=== PATIENT | female | born 1975 | race Caucasian/White ===

== ENCOUNTER 2023-08-31 20:17 | Emergency (ER) | payer MEDICAID, SELFPAY ==
[2023-08-31 20:27] VITALS: BP 94/60; PULSE 93; TEMP 36.6; O2SAT 96; BMI 25.7
[2023-08-31 20:35] VITALS: PULSE 90
--- NOTE | 2023-08-31 20:41 | XR_ITS ---
The [address] [address] Patient Name: ALMA WALTON MRN: [id number] date: 1975 Sex: F Assigned Patient Location: ED.MAIN Current Patient Location: ER Accession/Order Number: [id number] Exam Date: 08/31/2023 21:20 Report Date: 08/31/2023 22:22 At the request of: YURIDIA CHAN Procedure: XR hand RT min 3V EXAMINATION: XR hand RT min 3V, , 08/31/2023 9:20 PM EDT INDICATION: right hand pain HISTORY: Ordering Provider Reason for Exam: right hand pain Technologist Note: Additional: COMPARISON: None. TECHNIQUE: Right hip x-ray: 2 view(s). FINDINGS: Mild periarticular osteopenia is seen. No acute fracture. Joint alignment is anatomic. Joint spaces are preserved. Soft tissues are within normal limits. XR/XR hand RT min 3V IMPRESSION: No acute fracture or traumatic malalignment. Mild periarticular osteopenia is seen. Electronically authenticated by: MIGUEL ROBERTS Date: 08/31/2023 22:22
--- NOTE | 2023-08-31 20:41 | XR_ITS ---
The [address] [address] Patient Name: ALMA WALTON MRN: [id number] date: 1975 Sex: F Assigned Patient Location: ED.MAIN Current Patient Location: Accession/Order Number: [id number] Exam Date: 08/31/2023 21:20 Report Date: 08/31/2023 22:20 At the request of: YURIDIA CHAN Procedure: XR shoulder RT min 2V EXAMINATION: XR shoulder RT min 2V, , 08/31/2023 9:20 PM EDT INDICATION: right shoulder pain HISTORY: Ordering Provider Reason for Exam: right shoulder pain Technologist Note: Additional: COMPARISON: None. TECHNIQUE: Right shoulder x-ray: 3 view(s). FINDINGS: No acute fracture. Glenohumeral and acromioclavicular joints are anatomically aligned. Joint spaces are preserved. Soft tissues are unremarkable. XR/XR shoulder RT min 2V IMPRESSION: No acute fracture or traumatic malalignment. Electronically authenticated by: MIGUEL ROBERTS Date: 08/31/2023 22:20
--- NOTE | 2023-08-31 20:44 | ED_ITS ---
HPI HPI - Extremity Injury (Upper) General Chief Complaint: Extremity Injury, Upper Stated Complaint: Upper Extremity Pain Time Seen by Provider: 08/31/23 20:32 Source: patient Mode of arrival: walk-in Limitations: no limitations History of Present Illness HPI narrative: Patient is a 48-year-old female who presents to the emergency department for complaint of pain. She states for the last year she has had pain in her right hand and difficulty moving it. She states she has seen other emergency departments for this complaint and was referred to a specialist although she does not know if it was an orthopedist or security incident response engineer. She states she was told it was arthritis. She further complains of right shoulder pain for the last several months with difficulty turning her neck. She denies any falls, injuries to the extremity. She is right-hand dominant but states she is not able to use her right hand due to pain. She has not noted any swelling, redness or warmth of the joints. She took Tylenol this morning. Related Data Previous Rx's ?Medication ?Instructions ?Recorded ketorolac 10 mg tablet 10 mg PO TID PRN pain #10 tabs 08/31/23 methocarbamol 750 mg tablet 750 mg PO TID PRN pain #20 tabs 08/31/23 methylprednisolone 4 mg tablets in See Rx Instructions .Route 08/31/23 a dose pack (Medrol (Gerardo)) .COMPLEX #21 ea Allergies Allergy/AdvReac Type Severity Reaction Status Date / Time gabapentin AdvReac Intermediate altered Verified 08/31/23 20:32 mental status amoxicillin AdvReac Mild Vomiting Verified 08/31/23 20:32 codeine AdvReac Mild Vomiting Verified 08/31/23 20:32 Opioid HPI Opioid Management Most Recent Pain and Opioid Data: Last Pain Scale 8 08/31/23 21:02 Last ED Pain Assessment 08/31/23 21:02 Review of Systems ROS Constitutional Denies: fever or chills Ears, nose, mouth, and throat Denies: throat pain or nasal congestion Respiratory Denies: shortness of breath Gastrointestinal Denies: nausea or vomiting Musculoskeletal Reports: extremity pain, joint pain and limited range of motion; Denies: back pain, neck pain or joint swelling Integumentary/Breast Denies: rash Hematologic/Lymphatic Denies: easy bruising or easy bleeding Exam Narrative Exam Narrative: Gen.: Awake, alert, in no distress Head: Normocephalic, atraumatic ENT: Moist mucous membranes Respiratory: No respiratory distress Extremities:Limited abduction at the right shoulder with limited administrative coordinator strength in the right hand, no appreciable swelling, erythema or joint deformities of the right hand or right shoulder. No bony tenderness of the C-spine or T-spine. No scapula tenderness of the right shoulder. Psych: Normal mood and affect Neuro: No focal neuro deficit Skin: Warm, dry, intact Constitutional Vital Signs, click to edit/add: Last Vital Signs Temp 98 F 08/31/23 20:27 Pulse 87 08/31/23 22:00 Resp 18 08/31/23 22:00 BP 101/68 08/31/23 22:00 Pulse Ox 99 08/31/23 22:00 O2 Del Method Room Air 08/31/23 22:00 Course Vital Signs Vital signs: Vital Signs Temperature 98 F 08/31/23 20:27 Pulse Rate 93 H 08/31/23 20:27 Respiratory Rate 18 08/31/23 20:27 Blood Pressure 94/60 08/31/23 20:27 Pulse Oximetry 96 08/31/23 20:27 Oxygen Delivery Method Room Air 08/31/23 20:27 Temperature 98 F 08/31/23 20:27 Pulse Rate 87 08/31/23 22:00 Respiratory Rate 18 08/31/23 22:00 Blood Pressure 101/68 08/31/23 22:00 Pulse Oximetry 99 08/31/23 22:00 Oxygen Delivery Method Room Air 08/31/23 22:00 MDM - Extremity Injury (Upper) MDM Narrative Medical decision making narrative: X-rays of the right shoulder and hand do not show any evidence of fracture or dislocation. Patient is neurovascularly intact with stable vital signs. She is given medication for symptoms in the ER and discharged home with NSAID, Medrol Dosepak and muscle relaxant. She was given referrals for primary care, orthopedics and rheumatology. The limitations of emergency department evaluation were explained to the patient and her significant other at bedside. Return to the ER if symptoms change or worsen. Medical Records Attestation: I reviewed the patient's medical records. Imaging Data XR shoulder/hand: Attestation: I have reviewed the pertinent imaging results. Radiologist's impression: ITS Impressions Hand X-Ray 08/31/23 20:41 IMPRESSION: No acute fracture or traumatic malalignment. Mild periarticular osteopenia is seen. Electronically authenticated by: MIGUEL ROBERTS Date: 08/31/2023 22:22 Shoulder X-Ray 08/31/23 20:41 IMPRESSION: No acute fracture or traumatic malalignment. Electronically authenticated by: MIGUEL ROBERTS Date: 08/31/2023 22:20 Discharge Plan Discharge Stand Alone Forms: Portal Instructions Chief Complaint: Extremity Injury, Upper Clinical Impression: Hand pain, right, Acute pain of right shoulder Patient Disposition: Home, Self-Care Time of Disposition Decision: 21:31 Condition: Good Mode of Transportation: Private Vehicle Prescriptions / Home Meds: New ketorolac 10 mg tablet 10 mg PO TID PRN (Reason: pain) Qty: 10 0RF methocarbamol 750 mg tablet 750 mg PO TID PRN (Reason: pain) Qty: 20 0RF methylprednisolone [Medrol (Gerardo)] 4 mg tablets,dose pack See Rx Instructions .ROUTE .COMPLEX Qty: 21 0RF Rx Instructions: Taper as directed Print Language: Kenyan Instructions: Arthralgia (ED) Additional Instructions: Your xrays do not show any fractures or dislocation. Consider seeing a regular doctor as well as orthopedics and rheumatology for further testing and evaluation. Rest, ice and gently stretch the right shoulder and hand. Referrals: SOL YODER [Physician] - 1 week Physician,Non-Staff, MD [Primary Care Provider] - 1 week MELISSA ROGERS [Physician] - 1 week Discharge Date/Time: 08/31/23 22:00
[2023-08-31] MEDS: HYDROCODONE/ACET 5-325 MG TABLET 1 TAB PO (20:49)
[2023-08-31] MEDS: KETOROLAC TROMETHAMINE 60 MG/2 ML VIAL IM (20:53)
[2023-08-31] MEDS: ORPHENADRINE 60 MG/ 2 ML VIAL IM (20:53)
[2023-08-31 22:00] VITALS: BP 101/68; PULSE 87; O2SAT 99
== END 2023-08-31 22:00 | disposition home or self-care (01) ==
PROVIDERS: Emergency Provider Internal Medicine; Family Provider Internal Medicine
DX: M79.641 Pain in right hand (principal); M25.511 Pain in right shoulder
CPT/HCPCS: 73030; 73130; 96372; 99285

== ENCOUNTER 2024-01-17 17:22 | Emergency (ER) | payer OTHER, SELFPAY ==
[2024-01-17 17:25] VITALS: BP 115/84; PULSE 94; TEMP 36.6; O2SAT 96; BMI 27.5
--- OUTSIDE RECORDS SUMMARY | 2024-01-17 17:28 | XMS_ITS | CCD ---
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 Roxana: The Engine 2 Diet, cookbook Mrs. Schmidt (his ) has a cookbook with many recipes on whole plant based food: The Prevent and Reverse Heart Disease cookbook. Dr. Jose Licea, has a website and free mehdi to help get started on a whole plant based diet, at ContaAzul.eBoox and the free mehdi is 21-Day Vegan Kickstart with meals and recipes to follow. He has multiple free videos and YouTube, for example: https://youtu.be/sxtRi lvU5s0 , https://youtu.be/BnHYH jchn6w Dr. Roger Meyer has proven starch diet whole plant based and benefit to his Rheumatoid Arthritis patients, his website: norman.Uniteam Communication Dr. Kevin Black is a renowned materials scientist, who has studied and researched the benefits of the Whole plant based diet. He has also researched the adverse effects of animal proteins on health. He presents many of his research findings in his book The [place] study. Dr. Brock Zelaya has completed many research trials proving the reversal of diseases with healthy lifestyle and the Whole Plant based diet. Dr. Brock Zelaya website is: OneSpot UnDo It a new book by Dr. Brock Tavares has dedicated a website and additional time to reviewing all food related articles and research and presents them in his power point presentation and on his website at: nutritionfacts.org Dr. Tavares has multiple free videos and YouTube, for example https://youMelior Discovery.be/aSgNk hgVtks and https://youMelior Discovery.be/lXXXy gDRyBU. You could also find information about other health recommendations and Functional Medicine, such as Dr. Alexie Alberto, through the [facility] website. He is a functional medicine and internet ecommerce specialist. Also, you could find additional information by reading or watching online and YouTube such as: Seamless Tube Mill Operator AJ, Cooking With Plants, The Vegan Corner (recipes from an Sinhala Seamless Tube Mill Operator), and visiting the provided websites for additional information on the whole plant based benefit and cooking recipes. The Whole Foods Plant Based Cooking Show Athletes such as Brian Farr, Amadeo Mckeon YouTube Guilt Free Amadeo Mckeon YouTube Guilt Free TV and Kj with Unata. Goodbye Lupus by Esetlita Rogers M.D If you suspect you are gluten sensitive or intolerant, consider gluten free diet. Gluten could lead to increased inflammation in the bowels and body in certain patients. Consider organic and non-GMO products when shopping for your food. GMO are genetically modified food that may have adverse impact on our health. 2- Regular Exercise, i.e. beginner yoga Come As You Are: YOGA - Gentle Yoga Anyone Can Do Anywhere www.Kid$Shirt.[employer]/yoga [place] chi, stretching, cardio, gradual strengthening, pool therapy, physical therapy 3- Good Sleep (poor sleep impacts everything, recommended sleep is 7.5 to 8 hrs. a night). Meditation and relaxation techniques have shown to help with improving sleep. 4- Stress management, staying positive, be happy, laugh often (it is a great medicine) Find time to relax and meditate if possible. Following steps 1-3 will help with this as well. In psychiatric disorders, it is important to follow with a professional on the optimal management of depression, anxiety or psychiatric illness 5- Supplementing necessary vitamins and minerals, correcting any deficiencies, i.e. Vitamin D, B12, omega-3 fatty acids etc... Go natural when possible If you are following a Whole plant based diet, it is recommended to take Vitamin B12, sublingual, dissolve under the tongue, take once daily. Vitamin B12 is available over the counter, dose could be 2500 mcg, and can be taken once a week, and if your blood levels are low, you may need to take it once daily or a higher dose. Raw: Garlic, Cilantro, Ariton nuts, Pumpkin seeds, Etna seeds and Flax seed powder have been reported to help with certain metal detoxification such as mercury. [place]-3 plant based sources: don seeds, flax seed powder, flax milk, walnuts. Turmeric can be found natural, used as the spice powder or the root with your food. This is also available as a capsule. Sweet cherries (raw cleaned or frozen) and Turmeric have anti-inflammatory benefit Start reviewing the Whole Plant Based Diet, by watching [place] over RSP Tooling movie and then review website. There are many other resources and educational information on the Whole plant based diet on the Internet and documentaries. There are other resources for wellness that you can also benefit from, such as the [facility] website, [facility] and includes the Mediterranean heart healthy diet and yoga and meditation. Please avoid all dairy products. You could use non-dairy milk such as Flax milk, Cashew milk, [place] milk, Rice milk, Oat milk or Hemp milk, instead. It is very important to avoid all: refined sugars (including high fructose syrup), refined carbohydrates, any artificial sweeteners and artificial preservatives, and soda and processed food. Insure adequate hydration; drink at least 6 to 8 cups of water daily Examples of Smoothies: Every morning you can start your day with a healthy natural anti-inflammatory smoothie, for example, you can blend: fresh or frozen sweet cherries, half a root of turmeric (1 to 2 inches), banana, blue berries, walnuts, few leaves of kale, add flax milk (or almond milk), and enjoy. You could add half an avocado if you like it smoother. If you do not tolerate walnuts, you can use flax seeds, don seeds or hemp seeds instead. If you do not like plant based milk, you can use coconut water or plain water instead. Other smoothies, including green smoothies, are also very healthy and highly anti-inflammatory. For example fruits (such as banana or frozen frederic or pineapple) and add significant amount of leafy greens, then add water or coconut water and blend until smooth. You can also add turmeric in this recipe. GENERAL INFORMATION ON BONE HEALTH : -Bone Density testing (DXA scan) as recommended. -Vitamin D supplementation is recommended, unless blood levels are sufficient. Recommended daily dose of 1000 to 2000 IU total a day, or the dose necessary to achieve a Vitamin D 25-OH blood level of >31 and preferably closer to 40-60 ng/mL. Vitamin D pills are available over the counter. -Recommended daily dose of calcium: 1200mg total a day in divided doses. Calcium is usually sufficient in our regular diet, also available in multivitamins. Patients on certain dietary restrictions or those unable to meet their daily calcium by diety alone, may require calcium supplements. For patient with history of calcium kidney stones, Calcium Citrate would be the recommended supplement. It is recommended to avoid caclium carbonate supplement in this case, as these may increase risk of calcium kidney stones. The after visit summary has information on dietary calcium and instructions on reading calcium label and converting the %DV to mg. When you read a food label and you see calcium reported as DV %, add a zero and this will provide you with the approximate mg value of the calcium content in this food. For example, if a glass of almond milk is labeled as 40% calcium DV, then this contains 400 mg of calcium. For additional information, please see references provided. -Regular weight-bearing and muscle-strengthening exercise -Avoidance of tobacco smoking, excessive alcohol intake and excessive caffeine intake. -Fall and fracture precautions -It is recommend to continue regular follow up visits with your dentist every 6 months, and continue with good oral hygiene. Calcium: If your diet is sufficient in Calcium rich food, you will not need calcium supplement. Calcium Citrate is the preferred calcium if you have had kidney stones. Daily recommended calcium dose: 600mg twice a day with meals. Adequate calcium ingestion is essential for maintaining healthy bones. The recommended dose daily intake of calcium varies depending on individual needs but is usually between 1200 and 1500mg daily, preferably around 1200mg a day in divided dose (not all taken at once). This is equivalent to about five 8oz glasses of milk per day. Many foods are rich in calcium and they include: - Plant based, non-dairy, calcium rich products, include nuts, almond milk, beans, lentils - Vegetables and Fruit: bok-sahni, turnips, broccoli, kale, collards, - Dairy products: milk, cheese, yogurt, ice-cream - Fish products: canned salmon, sardines and shrimp - Cereals and nuts: almonds, sesame seeds, fortified cereals and oatmeal - Other foods: fortified orange-juice, figs, soybeans, other beans and eggs. If you have a low calcium diet and cannot tolerate calcium-rich foods, many supplements are available today. Your pharmacist can help you choose the one which best suits your needs. A few tips on supplements: - They should be easy to swallow - They should dissolve easily in ? cup of vinegar in < 15 minutes. - Count the ELEMENTAL calcium mgs. E.g. Calcium 499mg may have only 221mg of elemental Calcium. - Calcium citrate is the calcium supplement to take if you have had kidney stones and unable to meet your calcium requirements from food/diet alone. - There is such a variety today that it is best to bring in the bottle to your doctor to show them exactly what you are taking. Lastly too much calcium can be bad for you. Recent studies show extra supplements may increase your risk of kidney stones or cause high calcium levels in some people. You should discuss how much you should be taking with your doctor before starting them. Further Information is available from the following resources: www.nof.org (National Osteoporosis Foundation) http://www.osteo.org/o steolinks.asp National Institutes of Health: 5-218-581-BONE The Calcium Information [place]: Non-Dairy, Plant based Milk, contain 1 glass = 450 mg of calcium Exampled include Flax Milk, [place] Milk, Cashew Milk Examples of Food Sources of Calcium from NIH Food Milligrams (mg) per serving Percent DV* Soymilk, calcium-fortified, 8 ounces 299 30 Kemper juice, calcium-fortified, 6 ounces 261 26 Tofu, firm, made with calcium sulfate, ? cup* 253 25 Tofu, soft, made with calcium sulfate, ? cup* 138 14 Qijup-ae-hbj cereal, calcium-fortified, 1 cup 100?1,000 10?100 Turnip greens, fresh, boiled, ? cup 99 10 Kale, raw, chopped, 1 cup 100 10 Kale, fresh, cooked, 1 cup 94 9 Slovenian cabbage, bok sahni, raw, shredded, 1 cup 74 7 Bread, white, 1 slice 73 7 Tortilla, corn, xyupj-xi-ybqm/willingham, one 6? diameter 46 5 Tortilla, flour, gkyfb-eo-oczi/willingham, one 6? diameter 32 3 Bread, whole-wheat, 1 slice 30 3 Broccoli, raw, ? cup 21 2 * DV = Daily Value. DVs were developed by the U.S. Food and Drug Administration to help consumers compare the nutrient contents among products within the context of a total daily diet. The U.S. Department of Agriculture?s (USDA?s) Nutrient Database Web site lists the nutrient content of many foods and provides comprehensive list of foods containing calcium arranged by nutrient content and by food name. *Calcium content varies slightly by fat content; the more fat, the less calcium the food contains. * Calcium content is for tofu processed with a calcium salt. Tofu processed with other salts does not provide significant amounts of calcium. You could acces this information online at: http://ods.od.nih.gov/ factsheets/Calcium-Hea lthProfessional/ Vitamin D: Vitamin D3= cholecalciferol, available over the counter. Dose recommended 800 to 1000 iu daily with a meal; Certain patients required 5724-8786 iu daily and in patients deficient in Vitamin D, they require higher dosages. Certain patient requires higher dose, depending on their Vit D blood levels. Vitamin D is essential for calcium metabolism. It is really a hormone produced mainly in your skin after exposure to sunlight. Vitamin D helps you absorb calcium from your stomach and kidneys and incorporates it into your bones. Studies show approximately 50% of [place] men and women are vitamin D deficient in the winter. Milder cases of vitamin D are usually asymptomatic so the only way to know you have a problem is to have a blood level checked. More severe cases can cause osteomalacia (a.k.a. rickets) which can result in bone pain, weak bones and several abnormal laboratory tests and also weak muscles (a.k.a. myopathy). When this happens, your bones lose a lot of their calcium stores as the body tries to regulate the calcium required by other tissues. Prolonged deficiency can lead to severe bone disorders and fractures. Unlike calcium, dietary sources of vitamin D are rare, limited to a few fish oils particularly cod-liver oil, other fortified foods and egg yolks. Often supplementation is needed. Many multivitamins contain some vitamin D and vitamin D alone preparations are now available in several forms. The recommended daily intake of vitamin D used to be 400 and 800 international units, however, it is now known that larger amounts are needed, as discussed above. Your doctor can prescribe prescription strength vitamin D for you if necessary, if you have marked deficiency or diseases of the liver or kidney. Supplementation in patients with severe deficiency can stabilize or improve bone mineral density and in frail elderly persons, may reduce their risk of falling. Additional Information is available from: www.nof.org (the national osteoporosis foundation) http://www.[facility] center[facility] inic.org/arthritis/ost eo/info.htm http://ods.od.nih.gov/ factsheets/vitamind.as p National Institutes of Health: 2-262-042-BONE The Calcium Information [place]: Thank you for choosing [facility] for your healthcare. Sincerely, Glo Kendrick, RN, BSN Moraima Coffman MD Referring Provider: ROSA CAIN [[id number]] Allergies As of Date: 06/21/2018 Noted Allergy Reaction AMOXICILLIN 05/16/2005 Comments: gi upset CODEINE 05/02/2015 8 - GI Upset GABAPENTIN 12/02/2017 7 - Swelling VICODIN (HYDROCODONE-ACETAMINO PHE*05/16/2005 Comments: gi upset Date Reviewed: 06/21/2018 Reviewed by: Amadeo Cosme Ma - Fully Assessed Reason for Visit: New Patient [172] Primary Visit Diagnosis:Chronic midline low back pain with left-sided sciatica [M54.42, G89.29] Other Visit Diagnoses:Spinal stenosis, lumbar region, without neurogenic claudication [M48.061] Chronic right shoulder pain [M25.511, G89.29] Comment:Undergoing evaluation by Orthopedics DDD (degenerative disc disease), cervical [M50.30] DDD (degenerative disc disease), lumbar [M51.36] Smoking [F17.200] Comment:Counseled on cessation Counseling on health promotion and disease prevention [Z71.89] Order(s):XR SACROILIAC JOINTS 2V AP PELVIS/FERGUESON [[id number]] Order #: [id number] FUTURE Prescriptions as of 06/21/2018 Sig: DICLOFENAC SODIUM 75 MG TABLE* Take 1 tablet by mouth twice * Problem List As Of Date 06/21/2018 Noted Resolved H/O total vaginal hysterectomy, dysplasia 1995 *INVALID FOR* History of right salpingo-oophorectomy 2000 [Z9*INVALID FOR* Closed nondisplaced transverse fracture of shaf*INVALID FOR* Other instructions from your clinician: -PLEASE NOTE THAT WE REVIEW ALL YOUR TEST RESULTS AT YOUR NEXT FOLLOW UP VISIT WITH YOU. IF ANY ABNORMAL LAB REQUIRES SOONER ATTENTION, WE WILL CONTACT YOU. -If you have signed up on Prixtel, we will release your test results through Prixtel. As Discussed: - Please have x rays completed - Please stop smoking - Please take your vitamin D with dinner or a handful of raw unsalted Almonds for best absorption. Vitamin D is a fat soluble vitamin that requires it be taken with good fat to be absorbed. - Your calcium is sufficient in your diet These include nuts, seeds, legumes/beans, peas, dark green leafy vegetables, plant based milk Additional calcium rich foods listed below - Soaking Almonds overnight in the fridge with drinking water, can help with softening the almonds and improved absorption of the almonds. - A whole plant based diet and healthy lifestyle have been reported to be optimal for bone health and prevention of bone loss Recommendations for healthy lifestyle include: Healthy nutritious diet, anti-inflammatory diet, appropriate exercise, good sleep hygiene, stress management, supplementing vital deficiencies and maintaining healthy weight. with BMI <26. 5 points to remember to improve your health and continue on a healthy path: 1- Optimal nutritious food, such as a Whole Plant Based diet You can watch the movie that features the Whole Plant Based diet, [place] over knives (see video online and visit website). Another movie that was recently released is: Eating You Alive (you can find it at StrikeIron) Dr. Jenniffer Schmidt is a [facility] physician who is an expert in Whole Plant based diet. His website is [employer]. His research work highlighted the benefits of Whole plant based diet in reversing and preventing heart disease. Consider reading Rip Gonzaleznataliia: The Engine 2 Diet, cookbook Mrs. Schmidt (his ) has a cookbook with many recipes on whole plant based food: The Prevent and Reverse Heart Disease cookbook. Dr. Jose Licea, has a website and free mehdi to help get started on a whole plant based diet, at [employer]Smiles and the free mehdi is 21-Day Vegan Kickstart with meals and recipes to follow. He has multiple free videos and YouTube, for example: https://WiFast.Code Climate/sxtRi lvU5s0 , [email or web address].Code Climate/BnHYH jchn6w Dr. Roger Meyer has proven starch diet whole plant based and benefit to his Rheumatoid Arthritis patients, his website: Thryve.[employer]am [employer] Dr. Kevin Black is a renowned materials scientist, who has studied and researched the benefits of the Whole plant based diet. He has also researched the adverse effects of animal proteins on health. He presents many of his research findings in his book The [place] study. Dr. Brock Zelaya has completed many research trials proving the reversal of diseases with healthy lifestyle and the Whole Plant based diet. Dr. Borck Zelaya website is: milagrosInside Securedoris.[employer] UnDo It a new book by Dr. Brock Tavares has dedicated a website and additional time to reviewing all food related articles and research and presents them in his power point presentation and on his website at: nutritionfacts.org Dr. Tavares has multiple free videos and YouTube, for example https://youeDiets.comu.be/aSgNk hgVtks and https://WiFast.be/lXXXy gDRyBU. You could also find information about other health recommendations and Functional Medicine, such as Dr. Alexei Alberto, through the [facility] website. He is a functional medicine and internet ecommerce specialist. Also, you could find additional information by reading or watching online and YouTube such as: Chef ROBERSON, Cooking With Plants, The Vegan Corner (recipes from an Sinhala Seamless Tube Mill Operator), and visiting the provided websites for additional information on the whole plant based benefit and cooking recipes. The Whole Foods Plant Based Cooking Show Athletes such as Manish Jaquez, Brian Calero, Amadeo Mckeon YouTube Guilt Free Amadeo Mckeon YouTube Guilt Free TV and Kj with Unata. Goodbye Lupus by Estelita Rogers M.D If you suspect you are gluten sensitive or intolerant, consider gluten free diet. Gluten could lead to increased inflammation in the bowels and body in certain patients. Consider organic and non-GMO products when shopping for your food. GMO are genetically modified food that may have adverse impact on our health. 2- Regular Exercise, i.e. beginner yoga Come As You Are: YOGA - Gentle Yoga Anyone Can Do Anywhere www.Kid$Shirt.[employer]/yoga [place] chi, stretching, cardio, gradual strengthening, pool therapy, physical therapy 3- Good Sleep (poor sleep impacts everything, recommended sleep is 7.5 to 8 hrs. a night). Meditation and relaxation techniques have shown to help with improving sleep. 4- Stress management, staying positive, be happy, laugh often (it is a great medicine) Find time to relax and meditate if possible. Following steps 1-3 will help with this as well. In psychiatric disorders, it is important to follow with a professional on the optimal management of depression, anxiety or psychiatric illness 5- Supplementing necessary vitamins and minerals, correcting any deficiencies, i.e. Vitamin D, B12, omega-3 fatty acids etc... Go natural when possible If you are following a Whole plant based diet, it is recommended to take Vitamin B12, sublingual, dissolve under the tongue, take once daily. Vitamin B12 is available over the counter, dose could be 2500 mcg, and can be taken once a week, and if your blood levels are low, you may need to take it once daily or a higher dose. Raw: Garlic, Cilantro, Ariton nuts, Pumpkin seeds, Etna seeds and Flax seed powder have been reported to help with certain metal detoxification such as mercury. [place]-3 plant based sources: don seeds, flax seed powder, flax milk, walnuts. Turmeric can be found natural, used as the spice powder or the root with your food. This is also available as a capsule. Sweet cherries (raw cleaned or frozen) and Turmeric have anti-inflammatory benefit Start reviewing the Whole Plant Based Diet, by watching [place] over Knives movie and then review website. There are many other resources and educational information on the Whole plant based diet on the Internet and documentaries. There are other resources for wellness that you can also benefit from, such as the [facility] website, [facility] and includes the Mediterranean heart healthy diet and yoga and meditation. Please avoid all dairy products. You could use non-dairy milk such as Flax milk, Cashew milk, [place] milk, Rice milk, Oat milk or Hemp milk, instead. It is very important to avoid all: refined sugars (including high fructose syrup), refined carbohydrates, any artificial sweeteners and artificial preservatives, and soda and processed food. Insure adequate hydration; drink at least 6 to 8 cups of water daily Examples of Smoothies: Every morning you can start your day with a healthy natural anti-inflammatory smoothie, for example, you can blend: fresh or frozen sweet cherries, half a root of turmeric (1 to 2 inches), banana, blue berries, walnuts, few leaves of kale, add flax milk (or almond milk), and enjoy. You could add half an avocado if you like it smoother. If you do not tolerate walnuts, you can use flax seeds, don seeds or hemp seeds instead. If you do not like plant based milk, you can use coconut water or plain water instead. Other smoothies, including green smoothies, are also very healthy and highly anti-inflammatory. For example fruits (such as banana or frozen frederic or pineapple) and add significant amount of leafy greens, then add water or coconut water and blend until smooth. You can also add turmeric in this recipe. GENERAL INFORMATION ON BONE HEALTH : -Bone Density testing (DXA scan) as recommended. -Vitamin D supplementation is recommended, unless blood levels are sufficient. Recommended daily dose of 1000 to 2000 IU total a day, or the dose necessary to achieve a Vitamin D 25-OH blood level of >31 and preferably closer to 40-60 ng/mL. Vitamin D pills are available over the counter. -Recommended daily dose of calcium: 1200mg total a day in divided doses. Calcium is usually sufficient in our regular diet, also available in multivitamins. Patients on certain dietary restrictions or those unable to meet their daily calcium by diety alone, may require calcium supplements. For patient with history of calcium kidney stones, Calcium Citrate would be the recommended supplement. It is recommended to avoid caclium carbonate supplement in this case, as these may increase risk of calcium kidney stones. The after visit summary has information on dietary calcium and instructions on reading calcium label and converting the %DV to mg. When you read a food label and you see calcium reported as DV %, add a zero and this will provide you with the approximate mg value of the calcium content in this food. For example, if a glass of almond milk is labeled as 40% calcium DV, then this contains 400 mg of calcium. For additional information, please see references provided. -Regular weight-bearing and muscle-strengthening exercise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 SUBJECTIVE HISTORY OF PRESENT ILLNESS: Reason for Visit: Low Back Pain Alma Redd is seen for 3 month follow up. She is feeling worse. The distribution of symptoms is changed - pain is now located in low back. Pain is currently 9 out of 10. Interim treatment has included None. Adherence with treatment has been n/a. Adverse Effects: None Interim studies Obtained and Reviewed: None PED RED FLAGS YELLOW AND BLUE FLAGS No No-Significant Injury to Spine No-Use of Steroids for Prolonged Duration No-Loss of Bowel/Bladder Control, Genital/Anal Numbness No-Recent Use of Intravenous (IV) Drugs YES-Difficulty Keeping Balance when Walking No-Progressive Weakness in Arms/Legs YES-History of Any Type of Cancer YES-Unable to Find Position of Comfort YES-Pain at Night that Disturbs Sleep No-Recent Elevated Temp with Unknown Cause No-Diagnosed with Osteoporosis No-Unintentional Weight Loss or Gain No-Neg Attitude; Back Pain is Disabling YES-Avoiding Activity (for Fear of Pain) No-Depression or Anxiety Disorders No-Social Problems No-Substance Use Disorder No-Job Dissatisfaction No-Financial Disincentives *PED (Patient Entered Data) osteoporosis flag will display for females 55 years or older and males 75 years or older. 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 PAST MEDICAL HISTORY Diagnosis Date - Spinal stenosis lumbar history of cortisone injections PAST SURGICAL HISTORY Procedure Laterality Date - HYSTERECTOMY HX 1994 partial - PAST SURGICAL HISTORY OF 2000 removal of right ovary - PAST SURGICAL HISTORY OF 1994 lung biopsy x2 negative - PAST SURGICAL HISTORY OF laparoscopic removal of scar tissue from abdomen Social History Marital status: Single Spouse name: Years of education: Number of children: Social History Main Topics Smoking status: Current Every Day Smoker Packs/day: 1.00 Years: 15.00 Types: Cigarettes Smokeless tobacco: Never Used Comment: quit 2 weeks ago Alcohol use: Yes Comment: rare Drug use: No Sexual activity: Yes Partners with: Male control/protection: Surgical No family history on file. ALLERGIES Allergen Reactions - Amoxicillin gi upset - Codeine GI Upset - Gabapentin Swelling - Vicodin [Hydrocodon* gi upset CURRENT MEDICATIONS: methocarbamol (ROBAXIN) 750 mg tablet Take 750 mg by mouth twice daily. REVIEW OF SYSTEMS: PAIN ASSESSMENT: See HPI. GENERAL: Denies fever, chills malaise and weight loss. HEENT: No recent change in vision or hearing. and Blurried vision x2 months OBJECTIVE PHYSICAL EXAM: BP 112/53 Pulse 87 Resp 18 Wt 55.8 kg (123 lb) BMI 21.11 kg/m? Imaging Ordered: For possible Lumbar Radiculopathy due to interventional planning. SIGNATURE: Idania Auguste PA-C PATIENT NAME: Alma Redd DATE: June 02, 2018 TIME: 4:02 PM Patient presents today for follow up. Ongoing neck/shoulder complaints, less of a problem today. Pt is set up for MRI R shoulder and Rheumatology apt in May. New onset of low back pain, left sided with pain that radiates in the buttock and down the back of the leg into the 2nd/3rd toes, worse with standing upright. No conservative mgmt. Does not take routine NSAIDS/pain control meds. Smoker. Denies constitutional symptoms, bowel/bladder dysfunction or abrupt weakness in extremities. N/T are intermittent, worse with standing. Here for options. Physical Exam: GENERAL APPEARANCE: WNWH, NAD NEURO - Alert and oriented, cooperative, answers questions appropriately SPEECH - No slurring noted. HEAD - Normal cephalic, Atraumatic EYES - Extra ocular movement intact, no conjunctivitis, no nystagmus. EARS - No drainage noted, pinna intact NOSE - No epistaxis noted THROAT - No thyromegaly, no gross lymphadenopathy GAIT - new antalgic gait noted MOTOR - no new motor weakness in b/l quads. 5/5 motor BLE SENSORY - No new sensory complaints unless noted earlier in notes. left gluteal TTP ROS: Musculoskeltal exam as above. No bowel or bladder incontinence. Denies SOB No nerve tension sign on exam today for radicular pain. Radiology: Reports reviewed. 01/05/2019: R shoulder : Report available in computer. RESULT: No acute displaced fracture. Degenerative changes of the visualized cervical spine. No other significant abnormality. cervical xrays, outside system 06/2017: Report to be scanned. (prior to PT/Traction - worsening) Impression: DDD C5-C6 with hypertrophic joint changes at level, mild bilateral nerural foraminal narrowing, same level. N acute fracture visualized. ?No soft tissue swelling noted. ? cervical spine MRI: outside system, to be uploaded. ?11/2017: Impression: multilevel disc osteophyte presence, asymmetric to toward the left. ?Mild facet disease seen multiple levels, bilaterally. C5-6 moderate left greater than right stenosis, neural foramen. ?C6-7 bulging disco osteophyte complex right paracentral region. ?No prominent impingement. ? see full report scanned into system. ? EMG: results to be scanned Impression: No evidence of a radiculopathy, brachial plexopathy, entrapment neuropathy or diffuse neuropathic process Impression: see diagnosis Assessment: Cervicalgia (primary encounter diagnosis) Ac joint arthropathy Low back pain, non-specific Radiculopathy, lumbar region Rotator cuff impingement syndrome of right shoulder Plan: Discussed evidence based options including use of medications, non-surgical and surgical options. At present, pt would like to continue with non surgical care. PT - Core stabilization exercises, stretching/ flexibility and strengthening exercises, soft-tissue/ joint mobilization, modalities, body mechanics, posture, and home exercise program. Voltaren 75 mg po twice daily with food. Do not use any other NSAIDS or Kohler-2 inhibitors. Discontinue medication immediately if any side effects noted. Recommended to have blood pressure re-evaluated in 4-6 weeks. Ordered lumbar spine X-Rays today. pelvis xrays today. f/u 3-4 weeks. Consider advanced studies and possible invasive options. Advised to f/u with MRI order and f/u ortho for her RTC issues. Follow up with primary physician for routine care, blood pressure evaluation, labwork, physical exam as scheduled and for any medical concerns. I have answered all the questions regarding patients current diagnosis, care and treatment plan to patients satisfaction during today's visit. JOHAN Alvarez, PA-C Referring Provider: IDANIA AUGUSTE (EMILY) [[id number]] Allergies As of Date: 06/02/2018 Noted Allergy Reaction AMOXICILLIN 05/16/2005 Comments: gi upset CODEINE 05/02/2015 8 - GI Upset GABAPENTIN 12/02/2017 7 - Swelling VICODIN (HYDROCODONE-ACETAMINO PHE*05/16/2005 Comments: gi upset Date Reviewed: 06/02/2018 Reviewed by: Idania King) Len - Fully Assessed Reason for Visit: Low Back Pain [126] Cmt: Radiating to L hip, posterior and medial L leg to toes Primary Visit Diagnosis:Cervicalgia [M54.2] Other Visit Diagnoses:AC joint arthropathy [M19.019] Low back pain, non-specific [M54.5] Radiculopathy, lumbar region [M54.16] Rotator cuff impingement syndrome of right shoulder [M75.41] Order(s):XR PELVIS 1V AP [[id number]] Order #: [id number] FUTURE XR LUMBAR GENERAL 3V AP/LAT/L5-S1 [[id number]] Order #: [id number] FUTURE diclofenac, EC, (VOLTAREN) 75 mg EC tabletTake 1 tablet by mouth twice daily.Disp: 60 tabletRfl: 1 CONSULT TO PHYSICAL THERAPY [9032] Order #: [id number]: 1 Prescriptions as of 06/02/2018 Sig: DICLOFENAC SODIUM 75 MG TABLE* Take 1 tablet by mouth twice * Medication notes this encounter METHOCARBAMOL 750 MG TABLET >> Hiral Evans LPN, KIT ASSEMBLER 06/02/2018 3:58 PM >> HIRAL EVANS Wed Jun 02, 2018 3:58 PM Not taking Problem List As Of Date 06/02/2018 Noted Resolved H/O total vaginal hysterectomy, dysplasia 1995 *INVALID FOR* History of right salpingo-oophorectomy 2000 [Z9*INVALID FOR* Closed nondisplaced transverse fracture of shaf*INVALID FOR* Prescriptions ordered this encounter Disp Refills Start End DICLOFENAC SODIUM 75 MG TABLET,DELAY* 60 t* 1 06/02/2018 Route: ORAL Sig: Take 1 tablet by mouth twice daily. Medications Discontinued During This Encounter methocarbamol (ROBAXIN) 750 mg tablet 0 02/19/2018 06/02/2018 Class: Historical Med Route: ORAL Sig: Take 750 mg by mouth twice daily. Disc: Reason for discontinue is not on file. Disposition: Return in about 4 weeks (around 06/30/2018). Follow-up and Disposition History Recorded Encounter Status:Closed by IDANIA AUGUSTE on 06/02/18 Normal [facility] PROGRESSon 06-02-2018 Protein mass conc HNO ID: [id number] Author: Idania River (Emily) Len Service: (none) Author Type: Physician Consulting Marine Engineer Type: Progress Notes Filed: 06/02/2018 5:01 PM Note Text: SPINE CARE PATH LOW BACK PAIN: CHRONIC FOLLOW UP SUBJECTIVE HISTORY OF PRESENT ILLNESS: Reason for Visit: Low Back Pain Alma Redd is seen for 3 month follow up. She is feeling worse. The distribution of symptoms is changed - pain is now located in low back. Pain is currently 9 out of 10. Interim treatment has included None. Adherence with treatment has been n/a. Adverse Effects: None Interim studies Obtained and Reviewed: None PED RED FLAGS YELLOW AND BLUE FLAGS No No-Significant Injury to Spine No-Use of Steroids for Prolonged Duration No-Loss of Bowel/Bladder Control, Genital/Anal Numbness No-Recent Use of Intravenous (IV) Drugs YES-Difficulty Keeping Balance when Walking No-Progressive Weakness in Arms/Legs YES-History of Any Type of Cancer YES-Unable to Find Position of Comfort YES-Pain at Night that Disturbs Sleep No-Recent Elevated Temp with Unknown Cause No-Diagnosed with Osteoporosis No-Unintentional Weight Loss or Gain No-Neg Attitude; Back Pain is Disabling YES-Avoiding Activity (for Fear of Pain) No-Depression or Anxiety Disorders No-Social Problems No-Substance Use Disorder No-Job Dissatisfaction No-Financial Disincentives *PED (Patient Entered Data) osteoporosis flag will display for females 55 years or older and males 75 years or older. 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 PAST MEDICAL HISTORY Diagnosis Date - Spinal stenosis lumbar history of cortisone injections PAST SURGICAL HISTORY Procedure Laterality Date - HYSTERECTOMY HX 1994 partial - PAST SURGICAL HISTORY OF 2000 removal of right ovary - PAST SURGICAL HISTORY OF 1994 lung biopsy x2 negative - PAST SURGICAL HISTORY OF laparoscopic removal of scar tissue from abdomen Social History Marital status: Single Spouse name: Years of education: Number of children: Social History Main Topics Smoking status: Current Every Day Smoker Packs/day: 1.00 Years: 15.00 Types: Cigarettes Smokeless tobacco: Never Used Comment: quit 2 weeks ago Alcohol use: Yes Comment: rare Drug use: No Sexual activity: Yes Partners with: Male control/protection: Surgical No family history on file. ALLERGIES Allergen Reactions - Amoxicillin gi upset - Codeine GI Upset - Gabapentin Swelling - Vicodin [Hydrocodon* gi upset CURRENT MEDICATIONS: methocarbamol (ROBAXIN) 750 mg tablet Take 750 mg by mouth twice daily. REVIEW OF SYSTEMS: PAIN ASSESSMENT: See HPI. GENERAL: Denies fever, chills malaise and weight loss. HEENT: No recent change in vision or hearing. and Blurried vision x2 months OBJECTIVE PHYSICAL EXAM: BP 112/53 Pulse 87 Resp 18 Wt 55.8 kg (123 lb) BMI 21.11 kg/m? Imaging Ordered: For possible Lumbar Radiculopathy due to interventional planning. SIGNATURE: Idania Auguste PA-C PATIENT NAME: Alma Redd DATE: June 02, 2018 TIME: 4:02 PM Patient presents today for follow up. Ongoing neck/shoulder complaints, less of a problem today. Pt is set up for MRI R shoulder and Rheumatology apt in May. New onset of low back pain, left sided with pain that radiates in the buttock and down the back of the leg into the 2nd/3rd toes, worse with standing upright. No conservative mgmt. Does not take routine NSAIDS/pain control meds. Smoker. Denies constitutional symptoms, bowel/bladder dysfunction or abrupt weakness in extremities. N/T are intermittent, worse with standing. Here for options. Physical Exam: GENERAL APPEARANCE: WNWH, NAD NEURO - Alert and oriented, cooperative, answers questions appropriately SPEECH - No slurring noted. HEAD - Normal cephalic, Atraumatic EYES - Extra ocular movement intact, no conjunctivitis, no nystagmus. EARS - No drainage noted, pinna intact NOSE - No epistaxis noted THROAT - No thyromegaly, no gross lymphadenopathy GAIT - new antalgic gait noted MOTOR - no new motor weakness in b/l quads. 5/5 motor BLE SENSORY - No new sensory complaints unless noted earlier in notes. left gluteal TTP ROS: Musculoskeltal exam as above. No bowel or bladder incontinence. Denies SOB No nerve tension sign on exam today for radicular pain. Radiology: Reports reviewed. 01/05/2019: R shoulder : Report available in computer. RESULT: No acute displaced fracture. Degenerative changes of the visualized cervical spine. No other significant abnormality. cervical xrays, outside system 06/2017: Report to be scanned. (prior to PT/Traction - worsening) Impression: DDD C5-C6 with hypertrophic joint changes at level, mild bilateral nerural foraminal narrowing, same level. N acute fracture visualized. ?No soft tissue swelling noted. ? cervical spine MRI: outside system, to be uploaded. ?11/2017: Impression: multilevel disc osteophyte presence, asymmetric to toward the left. ?Mild facet disease seen multiple levels, bilaterally. C5-6 moderate left greater than right stenosis, neural foramen. ?C6-7 bulging disco osteophyte complex right paracentral region. ?No prominent impingement. ? see full report scanned into system. ? EMG: results to be scanned Impression: No evidence of a radiculopathy, brachial plexopathy, entrapment neuropathy or diffuse neuropathic process Impression: see diagnosis Assessment: Cervicalgia (primary encounter diagnosis) Ac joint arthropathy Low back pain, non-specific Radiculopathy, lumbar region Rotator cuff impingement syndrome of right shoulder Plan: Discussed evidence based options including use of medications, non-surgical and surgical options. At present, pt would like to continue with non surgical care. PT - Core stabilization exercises, stretching/ flexibility and strengthening exercises, soft-tissue/ joint mobilization, modalities, body mechanics, posture, and home exercise program. Voltaren 75 mg po twice daily with food. Do not use any other NSAIDS or Kohler-2 inhibitors. Discontinue medication immediately if any side effects noted. Recommended to have blood pressure re-evaluated in 4-6 weeks. Ordered lumbar spine X-Rays today. pelvis xrays today. f/u 3-4 weeks. Consider advanced studies and possible invasive options. Advised to f/u with MRI order and f/u ortho for her RTC issues. Follow up with primary physician for routine care, blood pressure evaluation, labwork, physical exam as scheduled and for any medical concerns. I have answered all the questions regarding patients current diagnosis, care and treatment plan to patients satisfaction during today's visit. JOHAN Alvarez, PA-C Normal [facility] BARBARA by IFA w/Reflexon 2017 BARBARA Pattern Negative Normal [facility] Comment on above: Performed By: #### C BCDIF, WSR, CRP, RF, URIC, ANAIFR ####[facility] [address] [place], [place] [phone] BARBARA Titer Negative Normal Negative [facility] Comment on above: Result Comment: Norm al range : negative at <1:80 serum dilution. Performed By: #### C BCDIF, WSR, CRP, RF, URIC, ANAIFR ####[facility] [place], [place] [phone] Nuclear Ab IF titer (S) Negative Normal Negative [facility] Comment on above: Result Comment: Norm al range : negative at <1:80 serum dilution. Approximately 6% of patients with connective tissue diseases with low positive EIA values are negative by IFA. Recommend follow-up with specific antinuclear antibodies if clinically indicated. Performed By: #### C BCDIF, WSR, CRP, RF, URIC, ANAIFR ####[address] [phone] C-Reactive Proteinon 018 CRP mass conc 0.7 mg/dL Normal <0.9 [facility] Comment on above: Performed By: #### C BCDIF, WSR, CRP, RF, URIC, ANAIFR ####[address] [place] [place] [phone] CBC and Differentialon 02-24 Abs Baso 0.09 k/uL Normal <0.11 [facility] Comment on above: Performed By: #### C BCDIF, WSR, CRP, RF, URIC, ANAIFR ####[place] [phone] Abs Luna 1.09 k/uL High <0.87 [facility] Comment on above: Performed By: #### C BCDIF, WSR, CRP, RF, URIC, ANAIFR ####[address] [place] [phone] Abs Neut 7.41 k/uL Normal 1.45-7.50 [facility] Comment on above: Performed By: #### C BCDIF, WSR, CRP, RF, URIC, ANAIFR ####[address] [place] [phone] Absolute nRBC <0.01 Normal <0.01 [facility] Comment on above: Performed By: #### C BCDIF, WSR, CRP, RF, URIC, ANAIFR ####[address] [phone] Basophils/100 WBC (Bld) 0.8 % Normal [facility] Comment on above: Performed By: #### C BCDIF, WSR, CRP, RF, URIC, ANAIFR ####[place] [address] [address] [place] [phone] DTYPE Auto Diff Normal [facility] Comment on above: Performed By: #### C BCDIF, WSR, CRP, RF, URIC, ANAIFR ####[place] [address] [address] [place] [phone] Eosinophils #/vol (Bld) 0.82 10*3/uL High <0.46 [facility] Comment on above: Performed By: #### C BCDIF, WSR, CRP, RF, URIC, ANAIFR ####[place] [address] [place] [phone] Eosinophils/100 WBC (Bld) 7.1 % Normal [facility] Comment on above: Performed By: #### C BCDIF, WSR, CRP, RF, URIC, ANAIFR ####[place] [address] [place] [phone] Erythrocyte distribution width Ratio (RBC) 13.0 % Normal 11.5-15.0 [facility] Comment on above: Performed By: #### C BCDIF, WSR, CRP, RF, URIC, ANAIFR ####[place] [address] [place] [phone] Hematocrit Volume Fraction (Bld) 45.6 % Normal 36.0-46.0 [facility] Comment on above: Performed By: #### C BCDIF, WSR, CRP, RF, URIC, ANAIFR ####[place] [address] [place] [phone] Hemoglobin mass conc (Bld) 14.7 g/dL Normal 11.5-15.5 [facility] Comment on above: Performed By: #### C BCDIF, WSR, CRP, RF, URIC, ANAIFR ####[place] [address] [place] [phone] Lymphocytes #/vol (Bld) 2.10 10*3/uL Normal 1.00-4.00 [facility] Comment on above: Performed By: #### C BCDIF, WSR, CRP, RF, URIC, ANAIFR ####[place] [address] [place] [phone] Lymphocytes/100 WBC (Bld) 18.2 % Normal [facility] Comment on above: Performed By: #### C BCDIF, WSR, CRP, RF, URIC, ANAIFR ####[place] [address] [place] [phone] MCH Entitic mass (RBC) 29.3 pG Normal 26.0-34.0 [facility] Comment on above: Performed By: #### C BCDIF, WSR, CRP, RF, URIC, ANAIFR ####[place] [address] [place] [phone] MCHC mass conc (RBC) 32.2 g/dL Normal 30.5-36.0 [facility] Comment on above: Performed By: #### C BCDIF, WSR, CRP, RF, URIC, ANAIFR ####[place] [address] [place] [phone] MCV Entitic volume (RBC) 90.8 fL Normal 80.0-100.0 [facility] Comment on above: Performed By: #### C BCDIF, WSR, CRP, RF, URIC, ANAIFR ####[place] [address] [place] [phone] Monocytes/100 WBC (Bld) 9.5 % Normal [facility] Comment on above: Performed By: #### C BCDIF, WSR, CRP, RF, URIC, ANAIFR ####[place] [address] [place] [phone] Neutrophils/100 WBC (Bld) 64.4 % Normal [facility] Comment on above: Performed By: #### C BCDIF, WSR, CRP, RF, URIC, ANAIFR ####[place] [address], [place] [phone] NRBCs 0.0 /100 WBC Normal 0 [facility] Comment on above: Performed By: #### C BCDIF, WSR, CRP, RF, URIC, ANAIFR ####[address], [place] [phone] Platelet mean volume Entitic volume (Bld) 11.6 fL Normal 9.0-12.7 [facility] Comment on above: Performed By: #### C BCDIF, WSR, CRP, RF, URIC, ANAIFR ####[address] [phone] Platelets #/vol (Bld) 293 10*3/uL Normal 150-400 [facility] Comment on above: Performed By: #### C BCDIF, WSR, CRP, RF, URIC, ANAIFR ####[address] [phone] RBC #/vol (Bld) 5.02 10*6/uL Normal 3.90-5.20 [facility] Comment on above: Performed By: #### C BCDIF, WSR, CRP, RF, URIC, ANAIFR ####[address] [place], [place] [phone] WBC #/vol (Bld) 11.51 10*3/uL High 3.70-11.00 [facility] Comment on above: Performed By: #### C BCDIF, WSR, CRP, RF, URIC, ANAIFR ####[address], [place] [phone] CNOVon 02-24-2018 CNOV Office Visit (ORTHAL ) ALMA REDD ([id number]) 1975 F Date Time Provider Department 02/24/18 1:45 PM JIM LINDA)ZULEYKA During your visit today, we recorded the following information about you: Jim Linda PA-C 02/24/2018 2:14 PM Addendum SUBJECTIVE Alma Redd is a 42 year old female. Worker's Compensation and legal considerations: none Ms. Redd presents for an initial visit for right shoulder pain Patient reports: Patient presents the office today for evaluation of right shoulder pain and weakness. Patient states she's had increased shoulder pain over the past 8-12 weeks. Has been undergoing conservative treatment with pain management provider however has failed to progress. Presents for orthopedic evaluation today. Quality: Sharp, throbbing Location: Right shoulder Radiates to: Right upper extremity Exacerbating factors: Forward reaching, heavy lifting, overhead activity Night pain: Laying on right side Rest pain: Denies Alleviating factors: Rest, ice Neurological complaints: Denies Vascular complaints: none Associated symptoms: pain,decreased range of motion, weakness Neck pain: Pt has history of cervical radiculopathy Previous treatments: NSAID: motrin/aleve/prednison e with mild relief Injection: AC joint cortisone injection with no relief Therapy: structured PT program x 7 weeks with mild relief Surgery: denies Analgesic : tylenol with mild relief, robaxin with no relief Review of Systems: Review of Systems: All were reviewed and found to be negative except those present in HPI. 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 Social history: Social History Marital status: Single Spouse name: Years of education: Number of children: Social History Main Topics Smoking status: Current Every Day Smoker Packs/day: 1.00 Years: 15.00 Types: Cigarettes Smokeless tobacco: Never Used Comment: quit 2 weeks ago Alcohol use: Yes Comment: rare Drug use: No Sexual activity: Yes Partners with: Male control/protection: Surgical Medications: Current Outpatient Prescriptions on File Prior to Visit: meloxicam (MOBIC) 15 mg tablet Take 1 tablet by mouth once daily. WITH FOOD meloxicam (MOBIC) 15 mg tablet Take 1 tablet by mouth once daily. WITH FOOD methylPREDNISolone (MEDROL, TOYN,) 4 mg Dose-Pack Do not use NSAIDS while on dose pack. Use as instructed on package oxyCODONE-acetaminophe n (PERCOCET) 5-325 mg tablet Take 1 tablet by mouth every 8 hours as needed. (Patient not taking: Reported on 12/02/2017 ) OMEPRAZOLE (PRILOSEC ORAL) Take by mouth. No current facility-administered medications on file prior to visit. Allergies: ALLERGIES Allergen Reactions - Amoxicillin gi upset - Codeine GI Upset - Gabapentin Swelling - Vicodin [Hydrocodon* gi upset OBJECTIVE GENERAL: no acute distress, alert, oriented x 3, appropriate mood and affect NECK: supple, no midline or paraspinal tenderness, FROM, negative Spurling's right Upper Extremity(ies): SKIN: intact SWELLING: mild over AC joint Atrophy of spinati: negative WARMTH: no warmth TENDERNESS: RIGHT trapezius negative SCJ negative ACJ positive Biceps negative ant glenohumeral negative post glenohumeral negative supraspinatus fossa positive infraspinatus fossa positive A/PROM: no scapular dyskinesis R FF 0/160 Abd 0/160 ER(90) 70 IR(90) 70 ER(0) 0 IR(0) 0 STRENGTH: R empty can 2/5 Lift-off 2/5 STABILITY: R laxity A/P/I: none anterior apprehension none , posterior apprehension none signs of ligamentous laxity:none SPECIAL TESTS: positive Camara' impingement, positive cross-chest, negative Speed's, negative Yergason's, negative Blevins's test NEUROLOGICAL EXAM: Sensory: sensation symmetric AND intact to light touch AND pinprick bilateral C4-T1 distributions Motor: 5/5 bilateral biceps, triceps, industrial arts teacher, finger abduction, WE, WF, AND EPL VASCULAR EXAM: radial AND brachial pulses 2+, good skin color with brisk capillary refill LYMPH NODES: no supraclavicular or epitrochlear adenopathy palpable Review of Additional Data/Studies: IMPRESSION: NORMAL RADIOGRAPH OF THE RIGHT SHOULDER Sod Farmer: PSCB ? Transcribe Date/Time: Jan 05 2018 10:04A Dictated by : JESSEE LESLIE, DO This examination was interpreted and the report reviewed and electronically signed by: HERI MAURER MD on Jan 05 2018 ?5:48PM ?EST Results-Findings * * *Final Report* * * DATE OF EXAM: Jan 05 2018 ?9:57AM ? CRX ? [id number] ?- ?XR SHLDR >/=3V AP/JESSY AP/OTHR RT ?/ PROCEDURE REASON: multiple diagnoses ?? ? * * * * Physician Interpretation * * * * ?EXAMINATION: ?XR SHLDR >/=3V AP/JESSY AP/OTHR RT HISTORY: ?42-year-old female with past medical history of cervical spinal stenosis, presenting with right shoulder stiffness and pain and cervicalgia; no recent injury. TECHNIQUE: ?XR SHLDR >/=3V AP/JESSY AP/OTHR RT ?? Laterality: ?RIGHT ?? Number of different views (projections): 3 ?? M: ?XB_1 COMPARISON: ?None. RESULT: No acute displaced fracture. Degenerative changes of the visualized cervical spine. No other significant abnormality. All images AND studies were reviewed with the patient. ASSESSMENT Arthritis of right acromioclavicular joint (primary encounter diagnosis) Acute pain of right shoulder Right arm weakness Right shoulder tendonitis Right shoulder pain, unspecified chronicity PLAN The following plan was agreed upon: At this time due to failure of conservative treatment including: ice, rest, elevation, home exercise program/structured PT program x 6 weeks, bracing, and NSAIDS (motrin and naprosyn). Also, with positive exam findings of: shoulder weakness, + supraspinitus findings we recommend patient undero MRI of the right shoulder to evaluate for RTC impingement/tear. Follow up 1-2 days after completion of MRI Jim Linda PA-C This note is created with the assistance of a speech-recognition program. It may contain inaccuracies such as misspellings,inaccuara te syntax or word sense that escaped review. While intending to generate a document that accurately reflects the content of the visit, no guarantee can be provided that every mistake has been identified and corrected by editing. Referring Provider: SELF [[id number]] Allergies As of Date: 02/24/2018 Noted Allergy Reaction AMOXICILLIN 05/16/2005 Comments: gi upset CODEINE 05/02/2015 8 - GI Upset GABAPENTIN 12/02/2017 7 - Swelling VICODIN (HYDROCODONE-ACETAMINO PHE*05/16/2005 Comments: gi upset Date Reviewed: 02/24/2018 Reviewed by: Jim Gray) Red - Fully Assessed Reason for Visit: Pain (Shoulder Pain) [1343] Cmt: R Primary Visit Diagnosis:Arthritis of right acromioclavicular joint [M19.011] Other Visit Diagnoses:Acute pain of right shoulder [M25.511] Right arm weakness [R29.898] Right shoulder tendonitis [M75.81] Right shoulder pain, unspecified chronicity [M25.511] Order(s):CBC + DIFF [SQCBCDIF] Order #: [id number] FUTURE C-REACTIVE PROTEIN (CRP) [SQCRP] Order #: [id number] FUTURE BARBARA BY IFA WITH REFLEX [SQANAIFR] Order #: [id number] FUTURE URIC ACID BLOOD [SQURIC] Order #: [id number] FUTURE SED RATE WESTERGREN [SQWSR] Order #: [id number] FUTURE RHEUMATOID FACTOR BL [SQRF] Order #: [id number] FUTURE MRI SHOULDER WO IVCON RT [[id number]] Order #: [id number] FUTURE Prescriptions as of 02/24/2018 Sig: METHOCARBAMOL 750 MG TABLET Take 750 mg by mouth twice da* Problem List As Of Date 02/24/2018 Noted Resolved H/O total vaginal hysterectomy, dysplasia 1995 *INVALID FOR* History of right salpingo-oophorectomy 2000 [Z9*INVALID FOR* Closed nondisplaced transverse fracture of shaf*INVALID FOR* Medications Discontinued During This Encounter meloxicam (MOBIC) 15 mg tablet 30 t* 1 01/05/2018 02/24/2018 Route: ORAL Sig: Take 1 tablet by mouth once daily. WITH FOOD Disc: Reason for discontinue is not on file. meloxicam (MOBIC) 15 mg tablet 30 t* 5 01/05/2018 02/24/2018 Route: ORAL Sig: Take 1 tablet by mouth once daily. WITH FOOD Disc: Reason for discontinue is not on file. methylPREDNISolone (MEDROL, TONY,) 4 * 1 Pa* 0 12/02/2017 02/24/2018 Sig: Do not use NSAIDS while on dose pack. Use as instructed on package Disc: Reason for discontinue is not on file. oxyCODONE-acetaminophe n (PERCOCET) 5* 12 t* 0 07/30/2015 02/24/2018 Class: Print RX Route: ORAL Sig: Take 1 tablet by mouth every 8 hours as needed. Patient not taking: Reported on 12/02/2017 Disc: Reason for discontinue is not on file. OMEPRAZOLE (PRILOSEC ORAL) 02/24/2018 Class: Historical Med Route: ORAL Sig: Take by mouth. Disc: Reason for discontinue is not on file. Disposition: Return for Follow up 1-2 days after completion of MRI. Follow-up and Disposition History Recorded Encounter Status:Closed by JIM LINDA PA-C on 02/24/18 [facility] PROGRESSon 02-24-2018 Protein mass conc HNO ID: [id number] Author: Jim Linda Service: (none) Author Type: Physician Consulting Marine Engineer Type: Progress Notes Filed: 02/24/2018 2:14 PM Note Text: SUBJECTIVE Alma Redd is a 42 year old female. Worker's Compensation and legal considerations: none Ms. Redd presents for an initial visit for right shoulder pain Patient reports: Patient presents the office today for evaluation of right shoulder pain and weakness. Patient states she's had increased shoulder pain over the past 8-12 weeks. Has been undergoing conservative treatment with pain management provider however has failed to progress. Presents for orthopedic evaluation today. Quality: Sharp, throbbing Location: Right shoulder Radiates to: Right upper extremity Exacerbating factors: Forward reaching, heavy lifting, overhead activity Night pain: Laying on right side Rest pain: Denies Alleviating factors: Rest, ice Neurological complaints: Denies Vascular complaints: none Associated symptoms: pain,decreased range of motion, weakness Neck pain: Pt has history of cervical radiculopathy Previous treatments: NSAID: motrin/aleve/prednison e with mild relief Injection: AC joint cortisone injection with no relief Therapy: structured PT program x 7 weeks with mild relief Surgery: denies Analgesic : tylenol with mild relief, robaxin with no relief Review of Systems: Review of Systems: All were reviewed and found to be negative except those present in HPI. 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 Social history: Social History Marital status: Single Spouse name: Years of education: Number of children: Social History Main Topics Smoking status: Current Every Day Smoker Packs/day: 1.00 Years: 15.00 Types: Cigarettes Smokeless tobacco: Never Used Comment: quit 2 weeks ago Alcohol use: Yes Comment: rare Drug use: No Sexual activity: Yes Partners with: Male control/protection: Surgical Medications: Current Outpatient Prescriptions on File Prior to Visit: meloxicam (MOBIC) 15 mg tablet Take 1 tablet by mouth once daily. WITH FOOD meloxicam (MOBIC) 15 mg tablet Take 1 tablet by mouth once daily. WITH FOOD methylPREDNISolone (MEDROL, TONY,) 4 mg Dose-Pack Do not use NSAIDS while on dose pack. Use as instructed on package oxyCODONE-acetaminophe n (PERCOCET) 5-325 mg tablet Take 1 tablet by mouth every 8 hours as needed. (Patient not taking: Reported on 12/02/2017 ) OMEPRAZOLE (PRILOSEC ORAL) Take by mouth. No current facility-administered medications on file prior to visit. Allergies: ALLERGIES Allergen Reactions - Amoxicillin gi upset - Codeine GI Upset - Gabapentin Swelling - Vicodin [Hydrocodon* gi upset OBJECTIVE GENERAL: no acute distress, alert, oriented x 3, appropriate mood and affect NECK: supple, no midline or paraspinal tenderness, FROM, negative Spurling's right Upper Extremity(ies): SKIN: intact SWELLING: mild over AC joint Atrophy of spinati: negative WARMTH: no warmth TENDERNESS: RIGHT trapezius negative SCJ negative ACJ positive Biceps negative ant glenohumeral negative post glenohumeral negative supraspinatus fossa positive infraspinatus fossa positive A/PROM: no scapular dyskinesis R FF 0/160 Abd 0/160 ER(90) 70 IR(90) 70 ER(0) 0 IR(0) 0 STRENGTH: R empty can 2/5 Lift-off 2/5 STABILITY: R laxity A/P/I: none anterior apprehension none , posterior apprehension none signs of ligamentous laxity:none SPECIAL TESTS: positive Camara' impingement, positive cross-chest, negative Speed's, negative Yergason's, negative Blevins's test NEUROLOGICAL EXAM: Sensory: sensation symmetric AND intact to light touch AND pinprick bilateral C4-T1 distributions Motor: 5/5 bilateral biceps, triceps, industrial arts teacher, finger abduction, WE, WF, AND EPL VASCULAR EXAM: radial AND brachial pulses 2+, good skin color with brisk capillary refill LYMPH NODES: no supraclavicular or epitrochlear adenopathy palpable Review of Additional Data/Studies: IMPRESSION: NORMAL RADIOGRAPH OF THE RIGHT SHOULDER Sod Farmer: ROB ? Transcribe Date/Time: Jan 05 2018 10:04A Dictated by : JESSEE LESLIE, DO This examination was interpreted and the report reviewed and electronically signed by: HERI MAURER MD on Jan 05 2018 ?5:48PM ?EST Results-Findings * * *Final Report* * * DATE OF EXAM: Jan 05 2018 ?9:57AM ? CRX ? [id number] ?- ?XR SHLDR >/=3V AP/JESSY AP/OTHR RT ?/ PROCEDURE REASON: multiple diagnoses ?? ? * * * * Physician Interpretation * * * * ?EXAMINATION: ?XR SHLDR >/=3V AP/JESSY AP/OTHR RT HISTORY: ?42-year-old female with past medical history of cervical spinal stenosis, presenting with right shoulder stiffness and pain and cervicalgia; no recent injury. TECHNIQUE: ?XR SHLDR >/=3V AP/JESSY AP/OTHR RT ?? Laterality: ?RIGHT ?? Number of different views (projections): 3 ?? M: ?XB_1 COMPARISON: ?None. RESULT: No acute displaced fracture. Degenerative changes of the visualized cervical spine. No other significant abnormality. All images AND studies were reviewed with the patient. ASSESSMENT Arthritis of right acromioclavicular joint (primary encounter diagnosis) Acute pain of right shoulder Right arm weakness Right shoulder tendonitis Right shoulder pain, unspecified chronicity PLAN The following plan was agreed upon: At this time due to failure of conservative treatment including: ice, rest, elevation, home exercise program/structured PT program x 6 weeks, bracing, and NSAIDS (motrin and naprosyn). Also, with positive exam findings of: shoulder weakness, + supraspinitus findings we recommend patient undero MRI of the right shoulder to evaluate for RTC impingement/tear. Follow up 1-2 days after completion of MRI Jim Linda PA-C This note is created with the assistance of a speech-recognition program. It may contain inaccuracies such as misspellings,inaccuara te syntax or word sense that escaped review. While intending to generate a document that accurately reflects the content of the visit, no guarantee can be provided that every mistake has been identified and corrected by editing. Normal [facility] Rheumatoid Factoron 02-25-20 18 Rheumatoid Factor <10 Normal <16 [facility] Comment on above: Performed By: #### C BCDIF, WSR, CRP, RF, URIC, ANAIFR ####[facility] [address] [place], [place] [phone] Sed Rate Westergrenon 2017 Sed Rate Westergren 5 mm/hr Normal 0-20 [facility] Comment on above: Performed By: #### C BCDIF, WSR, CRP, RF, URIC, ANAIFR ####[facility] [place], [place] [phone] Uric Acidon 02-24-2018 Urate mass conc 4.6 mg/dL Normal 2.5-6.6 [facility] Comment on above: Performed By: #### C BCDIF, WSR, CRP, RF, URIC, ANAIFR ####[facility] [address] [place], [place] [phone] CNOVon 02-16-2018 CNOV Office Visit ([facility] ) ALMA REDD ([id number]) 1975 F Date Time Provider Department 02/16/18 3:40 PM IDANIA AUGUSTE (EMILY) [facility] During your visit today, we recorded the following information about you: Pulse Respiration Blood pressure Weight 110/minute 18/minute 108/66 59 kg Idania Auguste PA-C 02/17/2018 4:10 PM Signed SPINE CARE PATH NECK PAIN: CHRONIC FOLLOW UP SUBJECTIVE HISTORY OF PRESENT ILLNESS: Reason for Visit: Follow Up. Neck and R Shoulder pain Alma Redd is seen for 5 week follow up. She is feeling worse. The distribution of symptoms is unchanged. Pain is currently 10 out of 10. Interim treatment has included Muscle relaxants, Oral steroids and Trigger point injections. Adherence with treatment has been fair . Adverse Effects: None Interim Studies Obtained and Reviewed: X-rays PED RED FLAGS YELLOW AND BLUE FLAGS No No-Significant Injury to Spine No-Use of Steroids for Prolonged Duration No-Loss of Bowel/Bladder Control, Genital/Anal Numbness No-Recent Use of Intravenous (IV) Drugs No-Difficulty Keeping Balance when Walking YES-Progressive Weakness in Arms/Legs No-History of Any Type of Cancer No-Unable to Find Position of Comfort YES-Pain at Night that Disturbs Sleep No-Recent Elevated Temp with Unknown Cause No-Diagnosed with Osteoporosis No-Unintentional Weight Loss or Gain YES-Neg Attitude; Back Pain is Disabling YES-Avoiding Activity (for Fear of Pain) No-Depression or Anxiety Disorders No-Social Problems No-Substance Use Disorder No-Job Dissatisfaction No-Financial Disincentives *PED (Patient Entered Data) osteoporosis flag will display for females 55 years or older and males 75 years or older. 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 PAST MEDICAL HISTORY Diagnosis Date - Spinal stenosis lumbar history of cortisone injections PAST SURGICAL HISTORY Procedure Laterality Date - HYSTERECTOMY HX 1994 partial - PAST SURGICAL HISTORY OF 2000 removal of right ovary - PAST SURGICAL HISTORY OF 1994 lung biopsy x2 negative - PAST SURGICAL HISTORY OF laparoscopic removal of scar tissue from abdomen Social History Marital status: Single Spouse name: Years of education: Number of children: Social History Main Topics Smoking status: Current Every Day Smoker Packs/day: 1.00 Years: 15.00 Types: Cigarettes Smokeless tobacco: Never Used Comment: quit 2 weeks ago Alcohol use: Yes Comment: rare Drug use: No Sexual activity: Yes Partners with: Male control/protection: Surgical No family history on file. ALLERGIES Allergen Reactions - Amoxicillin gi upset - Codeine GI Upset - Gabapentin Swelling - Vicodin [Hydrocodon* gi upset CURRENT MEDICATIONS: cyclobenzaprine (FLEXERIL) 10 mg tablet Take 10 mg by mouth three times daily as needed. meloxicam (MOBIC) 15 mg tablet Take 1 tablet by mouth once daily. WITH FOOD meloxicam (MOBIC) 15 mg tablet Take 1 tablet by mouth once daily. WITH FOOD methylPREDNISolone (MEDROL, TONY,) 4 mg Dose-Pack Do not use NSAIDS while on dose pack. Use as instructed on package oxyCODONE-acetaminophe n (PERCOCET) 5-325 mg tablet Take 1 tablet by mouth every 8 hours as needed. OMEPRAZOLE (PRILOSEC ORAL) Take by mouth. REVIEW OF SYSTEMS: PAIN ASSESSMENT: See HPI. GENERAL: Denies fever, chills malaise and weight loss. HEENT: No recent change in vision or hearing. and Recent blurry vision x3 wks OBJECTIVE PHYSICAL EXAM: BP 108/66 Pulse 110 Resp 18 Wt 59 kg (130 lb) BMI 22.31 kg/m? Imaging Ordered: None SIGNATURE: Idania Auguste PA-C PATIENT NAME: Alma Redd DATE: February 16, 2018 TIME: 4:08 PM Patient presents today for follow up. Pt has not started her therapy. Stating some depression is setting in due to pain. She has psychiatrist seeing routinely with adjustment to medication. Flexeril was prescribed and advised to double by her primary. Pt has since been experiencing intermittent light headedness and diminishes when not taking Flexeril. She has had vision changes, blurriness for the past several weeks. N/T in b/l hands, LLE, intermittent. Denies bowel/bladder dysfunction. Smoker. Physical Exam: GENERAL APPEARANCE: WNWH, NAD NEURO - Alert and oriented, cooperative, answers questions appropriately SPEECH - No slurring noted. HEAD - Normal cephalic, Atraumatic EYES - Extra ocular movement intact, no conjunctivitis, no nystagmus. EARS - No drainage noted, pinna intact NOSE - No epistaxis noted THROAT - No thyromegaly, no gross lymphadenopathy GAIT - no significant new antalgic gait noted MOTOR - no new motor weakness in b/l quads. SENSORY - No new sensory complaints unless noted earlier in notes. TTP, R trapezius region, paraspinal region C3-6. ROS: Musculoskeltal exam as above. No bowel or bladder incontinence. Denies SOB Radiology: Reports reviewed. cervical xrays, outside system 06/2017: Report to be scanned. (prior to PT/Traction - worsening) Impression: DDD C5-C6 with hypertrophic joint changes at level, mild bilateral nerural foraminal narrowing, same level. N acute fracture visualized. ?No soft tissue swelling noted. ? cervical spine MRI: outside system, to be uploaded. 11/2017: Impression: multilevel disc osteophyte presence, asymmetric to toward the left. Mild facet disease seen multiple levels, bilaterally. C5-6 moderate left greater than right stenosis, neural foramen. C6-7 bulging disco osteophyte complex right paracentral region. No prominent impingement. see full report scanned into system. ? EMG: results to be scanned Impression: No evidence of a radiculopathy, brachial plexopathy, entrapment neuropathy or diffuse neuropathic process Impression: see diagnosis Assessment: Cervicalgia Spinal stenosis of cervical region Arthralgia of right acromioclavicular joint Numbness and tingling of both upper extremities Myalgia Cervical disc disorder with radiculopathy (primary encounter diagnosis) Plan: Discussed evidence based options including use of medications, non-surgical and surgical options. At present, pt would like to consider surgical care options. order placed Advised, prior plan, continue, start PT, set up rheumatology and ortho apts. D/C Flexeril - at times light headed and urinary retention since her pcp advised doubling up on Flexeril since taking 20mg TID. Follow up with primary physician for routine care, blood pressure evaluation, labwork, physical exam as scheduled and for any medical concerns. will f/u with psychiatry for her depression. denies suicidal ideation or negative thoughts of harming self or others. Consider advanced studies and possible invasive options. I have answered all the questions regarding patients current diagnosis, care and treatment plan to patients satisfaction during today's visit. JOHAN Alvarez, PA-C Referring Provider: IDANIA AUGUSTE (EMILY) [[id number]] Allergies As of Date: 02/16/2018 Noted Allergy Reaction AMOXICILLIN 05/16/2005 Comments: gi upset CODEINE 05/02/2015 8 - GI Upset GABAPENTIN 12/02/2017 7 - Swelling VICODIN (HYDROCODONE-ACETAMINO PHE*05/16/2005 Comments: gi upset Date Reviewed: 02/16/2018 Reviewed by: Hiral (Fabiana) FABIANA Evans - Fully Assessed Reason for Visit: Follow Up [171] Cmt: Posterior neck and R shoulder pain Primary Visit Diagnosis:Cervical disc disorder with radiculopathy [M50.10] Other Visit Diagnoses:Cervicalgia [M54.2] Spinal stenosis of cervical region [M48.02] Arthralgia of right acromioclavicular joint [M25.511] Numbness and tingling of both upper extremities [R20.0, R20.2] Myalgia [M79.10] Order(s):CONSULT TO SPINE SURGERY [[id number]] Order #: [id number]: 1 Prescriptions as of 02/16/2018 Sig: MELOXICAM 15 MG TABLET Take 1 tablet by mouth once d* MELOXICAM 15 MG TABLET Take 1 tablet by mouth once d* METHYLPREDNISOLONE 4 MG TABLE* Do not use NSAIDS while on do* OXYCODONE-ACETAMINOPHE N 5 MG-* Take 1 tablet by mouth every * Patient not taking: Reported on 12/02/2017 PRILOSEC ORAL Take by mouth. Medication notes this encounter CYCLOBENZAPRINE 10 MG TABLET >> Hiral Evans LPN, LPN 02/16/2018 4:01 PM >> HIRAL EVANS Feb 16, 2018 4:01 PM Not taking >> Hiral Evans LPN, KIT ASSEMBLER 02/16/2018 4:01 PM >> HIRAL EVANS Feb 16, 2018 4:01 PM Taking >> Hiral Evans LPN, KIT ASSEMBLER 02/16/2018 4:07 PM >> HIRAL EVANS Feb 16, 2018 4:07 PM Pt takes 2 tabs TID MELOXICAM 15 MG TABLET >> Hiral Evans FABIANA, KIT ASSEMBLER 02/16/2018 4:01 PM >> HIRAL EVANS Feb 16, 2018 4:01 PM Not taking Problem List As Of Date 02/16/2018 Noted Resolved H/O total vaginal hysterectomy, dysplasia 1995 *INVALID FOR* History of right salpingo-oophorectomy 2000 [Z9*INVALID FOR* Closed nondisplaced transverse fracture of shaf*INVALID FOR* Medications Discontinued During This Encounter cyclobenzaprine (FLEXERIL) 10 mg tab* 02/16/2018 Class: Historical Med Route: ORAL Sig: Take 10 mg by mouth three times daily as needed. Disc: Reason for discontinue is not on file. Encounter Status:Closed by IDANIA AUGUSTE on 02/17/18 [facility] PROGRESSon 02-16-2018 Protein mass conc HNO ID: [id number] Author: Idania River (Emily) Len Service: (none) Author Type: Physician Consulting Marine Engineer Type: Progress Notes Filed: 02/17/2018 4:10 PM Note Text: SPINE CARE PATH NECK PAIN: CHRONIC FOLLOW UP SUBJECTIVE HISTORY OF PRESENT ILLNESS: Reason for Visit: Follow Up. Neck and R Shoulder pain Alma Redd is seen for 5 week follow up. She is feeling worse. The distribution of symptoms is unchanged. Pain is currently 10 out of 10. Interim treatment has included Muscle relaxants, Oral steroids and Trigger point injections. Adherence with treatment has been fair . Adverse Effects: None Interim Studies Obtained and Reviewed: X-rays PED RED FLAGS YELLOW AND BLUE FLAGS No No-Significant Injury to Spine No-Use of Steroids for Prolonged Duration No-Loss of Bowel/Bladder Control, Genital/Anal Numbness No-Recent Use of Intravenous (IV) Drugs No-Difficulty Keeping Balance when Walking YES-Progressive Weakness in Arms/Legs No-History of Any Type of Cancer No-Unable to Find Position of Comfort YES-Pain at Night that Disturbs Sleep No-Recent Elevated Temp with Unknown Cause No-Diagnosed with Osteoporosis No-Unintentional Weight Loss or Gain YES-Neg Attitude; Back Pain is Disabling YES-Avoiding Activity (for Fear of Pain) No-Depression or Anxiety Disorders No-Social Problems No-Substance Use Disorder No-Job Dissatisfaction No-Financial Disincentives *PED (Patient Entered Data) osteoporosis flag will display for females 55 years or older and males 75 years or older. 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 PAST MEDICAL HISTORY Diagnosis Date - Spinal stenosis lumbar history of cortisone injections PAST SURGICAL HISTORY Procedure Laterality Date - HYSTERECTOMY HX 1994 partial - PAST SURGICAL HISTORY OF 2000 removal of right ovary - PAST SURGICAL HISTORY OF 1994 lung biopsy x2 negative - PAST SURGICAL HISTORY OF laparoscopic removal of scar tissue from abdomen Social History Marital status: Single Spouse name: Years of education: Number of children: Social History Main Topics Smoking status: Current Every Day Smoker Packs/day: 1.00 Years: 15.00 Types: Cigarettes Smokeless tobacco: Never Used Comment: quit 2 weeks ago Alcohol use: Yes Comment: rare Drug use: No Sexual activity: Yes Partners with: Male control/protection: Surgical No family history on file. ALLERGIES Allergen Reactions - Amoxicillin gi upset - Codeine GI Upset - Gabapentin Swelling - Vicodin [Hydrocodon* gi upset CURRENT MEDICATIONS: cyclobenzaprine (FLEXERIL) 10 mg tablet Take 10 mg by mouth three times daily as needed. meloxicam (MOBIC) 15 mg tablet Take 1 tablet by mouth once daily. WITH FOOD meloxicam (MOBIC) 15 mg tablet Take 1 tablet by mouth once daily. WITH FOOD methylPREDNISolone (MEDROL, TONY,) 4 mg Dose-Pack Do not use NSAIDS while on dose pack. Use as instructed on package oxyCODONE-acetaminophe n (PERCOCET) 5-325 mg tablet Take 1 tablet by mouth every 8 hours as needed. OMEPRAZOLE (PRILOSEC ORAL) Take by mouth. REVIEW OF SYSTEMS: PAIN ASSESSMENT: See HPI. GENERAL: Denies fever, chills malaise and weight loss. HEENT: No recent change in vision or hearing. and Recent blurry vision x3 wks OBJECTIVE PHYSICAL EXAM: BP 108/66 Pulse 110 Resp 18 Wt 59 kg (130 lb) BMI 22.31 kg/m? Imaging Ordered: None SIGNATURE: Idania Auguste PA-C PATIENT NAME: Alma Redd DATE: February 16, 2018 TIME: 4:08 PM Patient presents today for follow up. Pt has not started her therapy. Stating some depression is setting in due to pain. She has psychiatrist seeing routinely with adjustment to medication. Flexeril was prescribed and advised to double by her primary. Pt has since been experiencing intermittent light headedness and diminishes when not taking Flexeril. She has had vision changes, blurriness for the past several weeks. N/T in b/l hands, LLE, intermittent. Denies bowel/bladder dysfunction. Smoker. Physical Exam: GENERAL APPEARANCE: WNWH, NAD NEURO - Alert and oriented, cooperative, answers questions appropriately SPEECH - No slurring noted. HEAD - Normal cephalic, Atraumatic EYES - Extra ocular movement intact, no conjunctivitis, no nystagmus. EARS - No drainage noted, pinna intact NOSE - No epistaxis noted THROAT - No thyromegaly, no gross lymphadenopathy GAIT - no significant new antalgic gait noted MOTOR - no new motor weakness in b/l quads. SENSORY - No new sensory complaints unless noted earlier in notes. TTP, R trapezius region, paraspinal region C3-6. ROS: Musculoskeltal exam as above. No bowel or bladder incontinence. Denies SOB Radiology: Reports reviewed. cervical xrays, outside system 06/2017: Report to be scanned. (prior to PT/Traction - worsening) Impression: DDD C5-C6 with hypertrophic joint changes at level, mild bilateral nerural foraminal narrowing, same level. N acute fracture visualized. ?No soft tissue swelling noted. ? cervical spine MRI: outside system, to be uploaded. 11/2017: Impression: multilevel disc osteophyte presence, asymmetric to toward the left. Mild facet disease seen multiple levels, bilaterally. C5-6 moderate left greater than right stenosis, neural foramen. C6-7 bulging disco osteophyte complex right paracentral region. No prominent impingement. see full report scanned into system. ? EMG: results to be scanned Impression: No evidence of a radiculopathy, brachial plexopathy, entrapment neuropathy or diffuse neuropathic process Impression: see diagnosis Assessment: Cervicalgia Spinal stenosis of cervical region Arthralgia of right acromioclavicular joint Numbness and tingling of both upper extremities Myalgia Cervical disc disorder with radiculopathy (primary encounter diagnosis) Plan: Discussed evidence based options including use of medications, non-surgical and surgical options. At present, pt would like to consider surgical care options. order placed Advised, prior plan, continue, start PT, set up rheumatology and ortho apts. D/C Flexeril - at times light headed and urinary retention since her pcp advised doubling up on Flexeril since taking 20mg TID. Follow up with primary physician for routine care, blood pressure evaluation, labwork, physical exam as scheduled and for any medical concerns. will f/u with psychiatry for her depression. denies suicidal ideation or negative thoughts of harming self or others. Consider advanced studies and possible invasive options. I have answered all the questions regarding patients current diagnosis, care and treatment plan to patients satisfaction during today's visit. JOHAN Alvarez, MANASA [facility] CNOVon 01-05-2018 CNOV Office Visit ([facility] ) ISABELLEALMA WADDELL ([id number]) 1975 F Date Time Provider Department 01/05/18 8:00 AM IDANIA AUGUSTE (EMILY) [facility] During your visit today, we recorded the following information about you: Pulse Respiration Blood pressure Weight 84/minute 16/minute 115/56 61.2 kg Idania Auguste PA-C 01/05/2018 9:48 AM Addendum SPINE CARE PATH NECK PAIN: CHRONIC FOLLOW UP SUBJECTIVE HISTORY OF PRESENT ILLNESS: Reason for Visit: Follow Up. MRI Results. Neck Pain Almaelyse Redd is seen for 1 month follow up. She is feeling the same. The distribution of symptoms is unchanged. Pain is currently 6 out of 10. Interim treatment has included None. Adherence with treatment has been n/a. Adverse Effects: n/a Interim Studies Obtained and Reviewed: MRI PED RED FLAGS YELLOW AND BLUE FLAGS No No-Significant Injury to Spine No-Use of Steroids for Prolonged Duration No-Loss of Bowel/Bladder Control, Genital/Anal Numbness No-Recent Use of Intravenous (IV) Drugs No-Difficulty Keeping Balance when Walking YES-Progressive Weakness in Arms/Legs YES-History of Any Type of Cancer YES-Unable to Find Position of Comfort YES-Pain at Night that Disturbs Sleep No-Recent Elevated Temp with Unknown Cause No-Diagnosed with Osteoporosis No-Unintentional Weight Loss or Gain No-Neg Attitude; Back Pain is Disabling YES-Avoiding Activity (for Fear of Pain) No-Depression or Anxiety Disorders No-Social Problems No-Substance Use Disorder No-Job Dissatisfaction No-Financial Disincentives *PED (Patient Entered Data) osteoporosis flag will display for females 55 years or older and males 75 years or older. 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 PAST MEDICAL HISTORY Diagnosis Date - Spinal stenosis lumbar history of cortisone injections PAST SURGICAL HISTORY Procedure Laterality Date - HYSTERECTOMY HX 1994 partial - PAST SURGICAL HISTORY OF 2000 removal of right ovary - PAST SURGICAL HISTORY OF 1994 lung biopsy x2 negative - PAST SURGICAL HISTORY OF laparoscopic removal of scar tissue from abdomen Social History Marital status: Single Spouse name: Years of education: Number of children: Social History Main Topics Smoking status: Current Every Day Smoker Packs/day: 1.00 Years: 15.00 Types: Cigarettes Smokeless tobacco: Never Used Comment: quit 2 weeks ago Alcohol use: Yes Comment: rare Drug use: No Sexual activity: Yes Partners with: Male control/protection: Surgical No family history on file. ALLERGIES Allergen Reactions - Amoxicillin gi upset - Codeine GI Upset - Gabapentin Swelling - Vicodin [Hydrocodon* gi upset CURRENT MEDICATIONS: meloxicam (MOBIC) 15 mg tablet Take 1 tablet by mouth once daily. WITH FOOD methylPREDNISolone (MEDROL, TONY,) 4 mg Dose-Pack Do not use NSAIDS while on dose pack. Use as instructed on package oxyCODONE-acetaminophe n (PERCOCET) 5-325 mg tablet Take 1 tablet by mouth every 8 hours as needed. OMEPRAZOLE (PRILOSEC ORAL) Take by mouth. REVIEW OF SYSTEMS: PAIN ASSESSMENT: See HPI. GENERAL: Denies fever, chills malaise and weight loss. HEENT: No recent change in vision or hearing. OBJECTIVE PHYSICAL EXAM: BP 115/56 Pulse 84 Resp 16 Wt 61.2 kg (135 lb) BMI 23.17 kg/m? Imaging Ordered: r shoulder xr SIGNATURE: Idania Auguste PA-C PATIENT NAME: Alma Redd DATE: January 05, 2018 TIME: 8:32 AM Patient presents today for follow up for MRI review. Pt c/o right sided shoulder pain, unable to reach above she shoulder without pain. Hx of Fibromyalgia. Pt has n/t in b/l upper extremities, unchanged. Neck pain is chronic, constant. She tried and failed Neurontin (swelling in legs) and Lyrica tried 2008 for her FM. Elavil caused her to be a Zombie in the mornings she has to be at work around 4am, intolerable. She has not continued her Mobic. Requesting new RX. EMG and xrays were also brought in today for review. Shoulder>Neck pain today. Physical Exam: GENERAL APPEARANCE: WNWH, NAD NEURO - Alert and oriented, cooperative, answers questions appropriately SPEECH - No slurring noted. HEAD - Normal cephalic, Atraumatic EYES - Extra ocular movement intact, no conjunctivitis, no nystagmus. EARS - No drainage noted, pinna intact NOSE - No epistaxis noted THROAT - No thyromegaly, no gross lymphadenopathy GAIT - no significant new antalgic gait noted MOTOR - no new motor weakness in b/l quads. SENSORY - No new sensory complaints unless noted earlier in notes. TTP AC joint region, Rt, + impingement sign, MARBIN, FADIR rt. ROS: Musculoskeletal exam as above. No bowel or bladder incontinence. Denies SOB Radiology: Reports reviewed. cervical xrays, outside system 06/2017: Report to be scanned. (prior to PT/Traction - worsening) Impression: DDD C5-C6 with hypertrophic joint changes at level, mild bilateral nerural foraminal narrowing, same level. N acute fracture visualized. No soft tissue swelling noted. cervical spine MRI: outside system, to be uploaded. 11/2017: Impression: multilevel disc osteophyte presence, asymmetric to toward the left. Mild facet disease seen multiple levels, bilaterally. C5-6 moderate left greater than right stenosis, neural foramen. C6-7 bulging disco osteophyte complex right paracentral region. No prominent impingement. see full report scanned into system. EMG: results to be scanned Impression: No evidence of a radiculopathy, brachial plexopathy, entrapment neuropathy or diffuse neuropathic process Impression: see diagnosis Assessment: Arthralgia of right acromioclavicular joint (primary encounter diagnosis) Cervicalgia Spinal stenosis of cervical region Numbness and tingling of both upper extremities Fibromyalgia Abnormal reflex Plan: Discussed evidence based options including use of medications, non-surgical and surgical options. At present, pt would like to continue with non surgical care. Shoulder Injection: [facility] approved time out was performed identifying the site, side and procedure prior to start of procedure. After obtaining informed verbal consent, prep with betadine, using aseptic technique, a 25G needle was introduced into Rt subacromial joint space. Aspiration was performed, and 0cc's of fluid was aspirated. Then betamethasone 6mg, 1cc of 1% Xylocaine PF, and 1cc of 0.25% Marcaine was injected without resistance. No bleeding or effusion was encountered immediately. A Band-Aid was placed at the injection site. Patient tolerated the procedure well. Post injection instructions were given including icing at the site if any pain persisted. post approach PT - Core stabilization exercises, stretching/ flexibility and strengthening exercises, soft-tissue/ joint mobilization, modalities, body mechanics, posture, and home exercise program. Mobic 15mg/qd # 30. Do not use any other NSAIDS or Kohler-2 inhibitors. Discontinue medication immediately if any side effects noted. Recommended to have blood pressure reevaluated in 4-6 weeks. Xr R shoulder today, consult ortho Pt states both shoulders have been problems for her for some time now. R>>L Consult Rheumatology. Pt feels her FM is worsening and would like to seek provider and get labs/diagnostic testing. Consider advanced studies and possible invasive options. Pt not eager to restart or consider Lyrica for her FM. Others, some ineffective with s/e Follow up with primary physician for routine care, blood pressure evaluation, labwork, physical exam as scheduled and for any medical concerns. I have answered all the questions regarding patients current diagnosis, care and treatment plan to patients satisfaction during today's visit. JOHAN Alvarez, PAGustavoC Referring Provider: IDANIA AUGUSTE (EMILY) [[id number]] Allergies As of Date: 01/05/2018 Noted Allergy Reaction AMOXICILLIN 05/16/2005 Comments: gi upset CODEINE 05/02/2015 8 - GI Upset GABAPENTIN 12/02/2017 7 - Swelling VICODIN (HYDROCODONE-ACETAMINO PHE*05/16/2005 Comments: gi upset Date Reviewed: 01/05/2018 Reviewed by: Idania River (Emily) Len - Fully Assessed Reason for Visit: Follow Up [171] Cmt: MRI results Neck Pain Primary Visit Diagnosis:Arthralgia of right acromioclavicular joint [M25.511] Other Visit Diagnoses:Cervicalgia [M54.2] Spinal stenosis of cervical region [M48.02] Numbness and tingling of both upper extremities [R20.0, R20.2] Fibromyalgia [M79.7] Abnormal reflex [R29.2] Order(s):XR SHOULDER GENERAL 3V OR MORE AP/TRUE AP/OTHER RT [3939152] Order #: [id number] FUTURE CONSULT TO PHYSICAL THERAPY [9040] Order #: [id number]: 1 meloxicam (MOBIC) 15 mg tabletTake 1 tablet by mouth once daily. WITH FOODDisp: 30 tabletRfl: 1 meloxicam (MOBIC) 15 mg tabletTake 1 tablet by mouth once daily. WITH FOODDisp: 30 tabletRfl: 5 [] betamethasone acetate-betamethasone sodium phosphate 6 mg injection (CELESTONE)Disp: Rfl: [] bupivacaine (PF) 0.25 % (2.5 mg/mL) 5 mg injection (SENSORCAINE MPF)Disp: Rfl: [] lidocaine (PF) 10 mg/mL (1 %) 20 mg injection (XYLOCAINE)Disp: Rfl: CONSULT TO RHEUM/IMMUN DISEASE [9041] Order #: [id number]: 1 CONSULT TO ORTHOPAEDICS [9020] Order #: [id number]: 1 Prescriptions as of 01/05/2018 Sig: MELOXICAM 15 MG TABLET Take 1 tablet by mouth once d* MELOXICAM 15 MG TABLET Take 1 tablet by mouth once d* METHYLPREDNISOLONE 4 MG TABLE* Do not use NSAIDS while on do* OXYCODONE-ACETAMINOPHE N 5 MG-* Take 1 tablet by mouth every * Patient not taking: Reported on 12/02/2017 PRILOSEC ORAL Take by mouth. Medication notes this encounter METHYLPREDNISOLONE 4 MG TABLETS IN A DOSE PACK >> Hiral Evans LPN, LPN 01/05/2018 8:27 AM >> HIRAL EVANS Neftalicody Jan 05, 2018 8:27 AM Not taking MELOXICAM 15 MG TABLET >> Hiral Evans LPN, LPN 01/05/2018 8:27 AM >> NATHAN HIRAL Lindsaycody Jan 05, 2018 8:27 AM Not taking PRILOSEC ORAL >> Hiral Evans LPN, LPN 01/05/2018 8:27 AM >> NATHAN HIRAL Lindsaycody Jan 05, 2018 8:27 AM Not taking Problem List As Of Date 01/05/2018 Noted Resolved H/O total vaginal hysterectomy, dysplasia 1995 *INVALID FOR* History of right salpingo-oophorectomy 2000 [Z9*INVALID FOR* Closed nondisplaced transverse fracture of shaf*INVALID FOR* Prescriptions ordered this encounter Disp Refills Start End MELOXICAM 15 MG TABLET 30 t* 1 01/05/2018 Route: ORAL Sig: Take 1 tablet by mouth once daily. WITH FOOD MELOXICAM 15 MG TABLET 30 t* 5 01/05/2018 Route: ORAL Sig: Take 1 tablet by mouth once daily. WITH FOOD BETAMETHASONE ACETATE AND SODIUM PHILLIP* 01/05/2018 01/05/2018 Route: OTHER BUPIVACAINE (PF) 0.25 % (2.5 MG/ML) * 01/05/2018 01/05/2018 Route: OTHER LIDOCAINE (PF) 10 MG/ML (1 %) INJECT* 01/05/2018 01/05/2018 Route: OTHER Medications Discontinued During This Encounter meloxicam (MOBIC) 15 mg tablet 30 t* 1 12/02/2017 01/05/2018 Route: ORAL Sig: Take 1 tablet by mouth once daily. WITH FOOD Disc: Reason for discontinue is not on file. Disposition: Return in about 6 weeks (around 02/16/2018). Follow-up and Disposition History Recorded Encounter Status:Closed by IDANIA AUGUSTE on 01/05/18 [facility] PROGRESSon 01-05-2018 Protein mass conc HNO ID: [id number] Author: Mona Webster (Tech) Service: (none) Author Type: Chefs Type: Progress Notes Filed: 01/05/2018 9:58 AM Note Text: Radiology Service Progress Note PATIENT NAME: Alma Redd DATE OF SERVICE: January 05, 2018 TIME: 9:58 AM PATIENT IDENTITY VERIFICATION COMPLETED USING TWO (2) METHODS: Patient confirmed name verbally and Date of . PATIENT GENDER DATA: Female. status: : No status: NO. PATIENT RELEVANT IMPLANT DATA REVIEWED: Not Applicable RADIOLOGY DEPARTMENT: General X-ray: Exam(s) Completed: Upper Extremity X-Ray(s): Shoulder, AP / TRUE AP / AXILLARY right : PERIPHERAL IV DATA: Not applicable SIGNED BY: Mona Webster, STAMP PAD MAKER January 05, 2018 9:58 AM [facility] Protein mass conc HNO ID: [id number] Author: Idania Auguste (Pa) Service: (none) Author Type: Physician Consulting Marine Engineer Type: Progress Notes Filed: 01/05/2018 9:48 AM Note Text: SPINE CARE PATH NECK PAIN: CHRONIC FOLLOW UP SUBJECTIVE HISTORY OF PRESENT ILLNESS: Reason for Visit: Follow Up. MRI Results. Neck Pain Alma Redd is seen for 1 month follow up. She is feeling the same. The distribution of symptoms is unchanged. Pain is currently 6 out of 10. Interim treatment has included None. Adherence with treatment has been n/a. Adverse Effects: n/a Interim Studies Obtained and Reviewed: MRI PED RED FLAGS YELLOW AND BLUE FLAGS No No-Significant Injury to Spine No-Use of Steroids for Prolonged Duration No-Loss of Bowel/Bladder Control, Genital/Anal Numbness No-Recent Use of Intravenous (IV) Drugs No-Difficulty Keeping Balance when Walking YES-Progressive Weakness in Arms/Legs YES-History of Any Type of Cancer YES-Unable to Find Position of Comfort YES-Pain at Night that Disturbs Sleep No-Recent Elevated Temp with Unknown Cause No-Diagnosed with Osteoporosis No-Unintentional Weight Loss or Gain No-Neg Attitude; Back Pain is Disabling YES-Avoiding Activity (for Fear of Pain) No-Depression or Anxiety Disorders No-Social Problems No-Substance Use Disorder No-Job Dissatisfaction No-Financial Disincentives *PED (Patient Entered Data) osteoporosis flag will display for females 55 years or older and males 75 years or older. 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 PAST MEDICAL HISTORY Diagnosis Date - Spinal stenosis lumbar history of cortisone injections PAST SURGICAL HISTORY Procedure Laterality Date - HYSTERECTOMY HX 1994 partial - PAST SURGICAL HISTORY OF 2000 removal of right ovary - PAST SURGICAL HISTORY OF 1994 lung biopsy x2 negative - PAST SURGICAL HISTORY OF laparoscopic removal of scar tissue from abdomen Social History Marital status: Single Spouse name: Years of education: Number of children: Social History Main Topics Smoking status: Current Every Day Smoker Packs/day: 1.00 Years: 15.00 Types: Cigarettes Smokeless tobacco: Never Used Comment: quit 2 weeks ago Alcohol use: Yes Comment: rare Drug use: No Sexual activity: Yes Partners with: Male control/protection: Surgical No family history on file. ALLERGIES Allergen Reactions - Amoxicillin gi upset - Codeine GI Upset - Gabapentin Swelling - Vicodin [Hydrocodon* gi upset CURRENT MEDICATIONS: meloxicam (MOBIC) 15 mg tablet Take 1 tablet by mouth once daily. WITH FOOD methylPREDNISolone (MEDROL, TONY,) 4 mg Dose-Pack Do not use NSAIDS while on dose pack. Use as instructed on package oxyCODONE-acetaminophe n (PERCOCET) 5-325 mg tablet Take 1 tablet by mouth every 8 hours as needed. OMEPRAZOLE (PRILOSEC ORAL) Take by mouth. REVIEW OF SYSTEMS: PAIN ASSESSMENT: See HPI. GENERAL: Denies fever, chills malaise and weight loss. HEENT: No recent change in vision or hearing. OBJECTIVE PHYSICAL EXAM: BP 115/56 Pulse 84 Resp 16 Wt 61.2 kg (135 lb) BMI 23.17 kg/m? Imaging Ordered: r shoulder xr SIGNATURE: Idania Auguste PA-C PATIENT NAME: Alma Redd DATE: January 05, 2018 TIME: 8:32 AM Patient presents today for follow up for MRI review. Pt c/o right sided shoulder pain, unable to reach above she shoulder without pain. Hx of Fibromyalgia. Pt has n/t in b/l upper extremities, unchanged. Neck pain is chronic, constant. She tried and failed Neurontin (swelling in legs) and Lyrica tried 2008 for her FM. Elavil caused her to be a Zombie in the mornings she has to be at work around 4am, intolerable. She has not continued her Mobic. Requesting new RX. EMG and xrays were also brought in today for review. Shoulder>Neck pain today. Physical Exam: GENERAL APPEARANCE: WNWH, NAD NEURO - Alert and oriented, cooperative, answers questions appropriately SPEECH - No slurring noted. HEAD - Normal cephalic, Atraumatic EYES - Extra ocular movement intact, no conjunctivitis, no nystagmus. EARS - No drainage noted, pinna intact NOSE - No epistaxis noted THROAT - No thyromegaly, no gross lymphadenopathy GAIT - no significant new antalgic gait noted MOTOR - no new motor weakness in b/l quads. SENSORY - No new sensory complaints unless noted earlier in notes. TTP AC joint region, Rt, + impingement sign, MARBIN, YOONIR rt. ROS: Musculoskeletal exam as above. No bowel or bladder incontinence. Denies SOB Radiology: Reports reviewed. cervical xrays, outside system 06/2017: Report to be scanned. (prior to PT/Traction - worsening) Impression: DDD C5-C6 with hypertrophic joint changes at level, mild bilateral nerural foraminal narrowing, same level. N acute fracture visualized. No soft tissue swelling noted. cervical spine MRI: outside system, to be uploaded. 11/2017: Impression: multilevel disc osteophyte presence, asymmetric to toward the left. Mild facet disease seen multiple levels, bilaterally. C5-6 moderate left greater than right stenosis, neural foramen. C6-7 bulging disco osteophyte complex right paracentral region. No prominent impingement. see full report scanned into system. EMG: results to be scanned Impression: No evidence of a radiculopathy, brachial plexopathy, entrapment neuropathy or diffuse neuropathic process Impression: see diagnosis Assessment: Arthralgia of right acromioclavicular joint (primary encounter diagnosis) Cervicalgia Spinal stenosis of cervical region Numbness and tingling of both upper extremities Fibromyalgia Abnormal reflex Plan: Discussed evidence based options including use of medications, non-surgical and surgical options. At present, pt would like to continue with non surgical care. Shoulder Injection: [facility] approved time out was performed identifying the site, side and procedure prior to start of procedure. After obtaining informed verbal consent, prep with betadine, using aseptic technique, a 25G needle was introduced into Rt subacromial joint space. Aspiration was performed, and 0cc's of fluid was aspirated. Then betamethasone 6mg, 1cc of 1% Xylocaine PF, and 1cc of 0.25% Marcaine was injected without resistance. No bleeding or effusion was encountered immediately. A Band-Aid was placed at the injection site. Patient tolerated the procedure well. Post injection instructions were given including icing at the site if any pain persisted. post approach PT - Core stabilization exercises, stretching/ flexibility and strengthening exercises, soft-tissue/ joint mobilization, modalities, body mechanics, posture, and home exercise program. Mobic 15mg/qd # 30. Do not use any other NSAIDS or Kohler-2 inhibitors. Discontinue medication immediately if any side effects noted. Recommended to have blood pressure reevaluated in 4-6 weeks. Xr R shoulder today, consult ortho Pt states both shoulders have been problems for her for some time now. R>>L Consult Rheumatology. Pt feels her FM is worsening and would like to seek provider and get labs/diagnostic testing. Consider advanced studies and possible invasive options. Pt not eager to restart or consider Lyrica for her FM. Others, some ineffective with s/e Follow up with primary physician for routine care, blood pressure evaluation, labwork, physical exam as scheduled and for any medical concerns. I have answered all the questions regarding patients current diagnosis, care and treatment plan to patients satisfaction during today's visit. JOHAN Alvarez, PA-C [facility] XR SHLDR >/=3V AP/JESSY AP/OTH R RTon 01-05-2018 XR SHLDR >/=3V AP/JESSY AP/OTHR RT * * *Final Report* * * DATE OF EXAM: Jan 05 2018 9:57AM CRX [id number] - XR SHLDR >/=3V AP/JESSY AP/OTHR RT / PROCEDURE REASON: multiple diagnoses * * * * Physician Interpretation * * * * EXAMINATION: XR SHLDR >/=3V AP/JESSY AP/OTHR RT HISTORY: 42-year-old female with past medical history of cervical spinal stenosis, presenting with right shoulder stiffness and pain and cervicalgia; no recent injury. TECHNIQUE: XR SHLDR >/=3V AP/JESSY AP/OTHR RT Laterality: RIGHT Number of different views (projections): 3 M: XB_1 COMPARISON: None. RESULT: No acute displaced fracture. Degenerative changes of the visualized cervical spine. No other significant abnormality. IMPRESSION: NORMAL RADIOGRAPH OF THE RIGHT SHOULDER Sod Farmer: ROB Transcribe Date/Time: Jan 05 2018 10:04A Dictated by : JESSEE LESLIE DO This examination was interpreted and the report reviewed and electronically signed by: HERI MAURER MD on Jan 05 2018 5:48PM EST [id number] [facility] MR OUTSIDE CD DICOM IMPORT - NBNRon 12-29-2017 MR OUTSIDE CD DICOM IMPORT -NBNR Images were obtained outside of [facility] [id number] [facility] CNOVon 12-02-2017 CNOV Office Visit ([facility] ) ISABELLEALMA Henry ([id number]) 1975 F Date Time Provider Department 12/02/17 12:40 PM IDANIA AUGUSTE) [facility] During your visit today, we recorded the following information about you: Pulse Blood pressure Weight 117/minute 123/77 61.2 kg Idania Auguste PA-C 12/02/2017 2:20 PM Signed [facility] Low Back Pain - Chronic (> 12 weeks) Initial Exam SUBJECTIVE HISTORY OF PRESENT ILLNESS: Alma Redd is a 42 year old female who presents with a chief complaint of low back pain and is seen in consultation requested by Dr. Cain for an opinion regarding low back pain. My final recommendations will be communicated back to the requesting physician by way of shared medical record or letter via US mail. Other Issues Addressed at the Visit Today: Neck pain Precipitating Event: None PAIN EVALUATION 12/02/2017 Pain Score: 6 Pain Location: Back-Lower Description: Aching Duration Units: Years Frequency: Continuous Intervention: Medication otc Pain Radiation: to the left foot/feet Aggravating Factors: Standing, Walking, Walking upstairs, Walking downstairs Alleviating Factors: Side-lying, Sitting, Standing Pain Ratio: Pain in the back is greater than in the leg Prior Therapy: Muscle relaxants- tramadol-does not want to take Litigation: No Workers' Compensation: No PED RED FLAGS YELLOW AND BLUE FLAGS No-Significant Injury to Spine No-Use of Steroids for Prolonged Duration No-Loss of Bowel/Bladder Control, Genital/Anal Numbness No-Recent Use of Intravenous (IV) Drugs No-Difficulty Keeping Balance when Walking YES-Progressive Weakness in Arms/Legs YES-History of Any Type of Cancer No-Unable to Find Position of Comfort YES-Pain at Night that Disturbs Sleep No-Recent Elevated Temp with Unknown Cause No-Diagnosed with Osteoporosis No-Unintentional Weight Loss or Gain No-Neg Attitude; Back Pain is Disabling YES-Avoiding Activity (for Fear of Pain) YES-Depression or Anxiety Disorders No-Social Problems No-Substance Use Disorder No-Job Dissatisfaction YES-Financial Disincentives *PED (Patient Entered Data) osteoporosis flag will display for females 55 years or older and males 75 years or older. 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 PAST MEDICAL HISTORY Diagnosis Date - Spinal stenosis lumbar history of cortisone injections PAST SURGICAL HISTORY Procedure Laterality Date - HYSTERECTOMY HX 1994 partial - PAST SURGICAL HISTORY OF 2000 removal of right ovary - PAST SURGICAL HISTORY OF 1994 lung biopsy x2 negative - PAST SURGICAL HISTORY OF laparoscopic removal of scar tissue from abdomen Social History Marital status: Single Spouse name: Years of education: Number of children: Social History Main Topics Smoking status: Current Every Day Smoker Packs/day: 1.00 Years: 15.00 Types: Cigarettes Comment: quit 2 weeks ago Alcohol use: Yes Comment: rare Drug use: No Sexual activity: Yes Partners with: Male control/protection: Surgical No family history on file. ALLERGIES Allergen Reactions - Amoxicillin gi upset - Codeine GI Upset - Vicodin [Hydrocodon* gi upset CURRENT MEDICATIONS: celecoxib (CELEBREX) 200 mg capsule Take 1 capsule by mouth twice daily. oxyCODONE-acetaminophe n (PERCOCET) 5-325 mg tablet Take 1 tablet by mouth every 8 hours as needed. OMEPRAZOLE (PRILOSEC ORAL) Take by mouth. REVIEW OF SYSTEMS: PAIN ASSESSMENT: See HPI. GENERAL: Denies fever, chills malaise and weight loss. HEENT: Eyes positive for blurred vision OBJECTIVE: PHYSICAL EXAM see encounter Imaging Ordered: For possible Cervical Radiculopathy due to arm pain unresponsive to medical management. SIGNATURE: Idania Auguste PA-C PATIENT NAME: Alma Redd DATE: December 02, 2017 TIME: 1:04 PM HPI explored in detail with patient and edited as breannasesayareli. See notes for physical exam and treatment plan. CC - Here for worsening neck pain and limitation of motion after therapy sessions performing traction. Pt had xrays and injections done locally at [facility] near [place]. Pt given RX for Zanaflex, but it was not picked up yet, until her payday. Celebrex in the past, not effective. Neurontin trial, thrush reaction and discontinued. No gains with any conservative mgmt and has done recent therapy. Denies significant bowel/bladder dysfunction or imbalance. N/T intermittently, upper extremities which was the initial symptom that patient ended up in therapy for before her worsening symptoms following traction. PHYSICAL EXAM: GENERAL APPEARANCE - well nourished, well hydrated, no apparent distress SPEECH - No slurring noted. SKIN - No skin breakdown noted in posterior cervical spine region HEAD - Normal cephalic, Atraumatic EYES - Extra ocular movement intact, no conjunctivitis, no nystagmus. EARS - No drainage noted, pinna intact NOSE - No epistaxis noted THROAT - No thyromegaly, no gross lymphadenopathy VASCULAR - No significant cynosis noted in fingers ABDOMEN - no guarding noted NEURO - Alert and oriented, cooperative, answers questions appropriately GAIT - No significant antalgic gait noted. SENSORY EXAM - Grossly intact to superficial light touch to bilateral upper limbs. MOTOR STRENGTH - Good to Normal bilaterally in biceps, triceps, anterior and lateral deltoids, wrist flexors, wrist extensors, and hand intrinsics. MUSCLE STRETCH REFLEXES - symmetric bilaterally in biceps, brachioradialis. Triceps 3+ on left, hyperflexic RANGE OF MOTION - Significant loss of ROM in cervical flexion, extension, rotation to right and left. all limited to due pain today. SHOULDER ROM - within functional limit in flexion, extension, abduction, and adduction bilaterally. ELBOW ROM - within functional limits in flexion, extension bilaterally WRIST ROM - intact in flexion, extension bilaterally, pronation / supination intact bilaterally MUSCLE MASS - No gross muscle atrophy or asymmetry noted bilaterally in upper limbs, including in the hand intrinsics, thenar and hypothenar eminence. TENDERNESS - ++ Significant reproduction of pain with palpation of cervical paraspinous muscles bilaterally and trapezius bilaterally. LAURA SIGNS: 1) Tenderness: Appropriate 2) Simulation/Axial Loading/ROT: Appropriate 3) Distraction: Seated SLR: Appropriate 4) Regional Disturbances: Appropriate 5) Overreaction: Negative NEURO/PHYSICAL SIGNS: Negative Moon sign bilaterally Other findings: none Radiology: Reports and films reviewed with patient. cervical xrays, outside system 06/2017: Report to be scanned. (prior to PT/Traction - worsening) Impression: DDD C5-C6 with hypertrophic joint changes at level, mild bilateral nerural foraminal narrowing, same level. N acute fracture visualized. No soft tissue swelling noted. IMPRESSION: see diagnosis. Cervicalgia (primary encounter diagnosis) Abnormal reflex Spinal stenosis of cervical region Numbness and tingling of both upper extremities PLAN: Discussed evidence based options including use of medications, non-surgical and surgical options. Educated about likely pathology and reviewed anatomy and prognosis. At present, pt would like to continue with non surgical care. Cervical spine MRI: - R/o HNP vs stenosis vs occult pathology. Results will help us with possible planning for invasive options including fluoroscopic guided injections and surgical options. f/u with me for review of study and additional recommendations. abnormal reflex, limitation due to pain LROM, f/u after studies. PT - Core stabilization exercises, stretching/ flexibility and strengthening exercises, soft-tissue/ joint mobilization, modalities, body mechanics, posture, and home exercise program. hold. Mobic 15mg/qd # 30. Do not use any other NSAIDS or Kohler-2 inhibitors. Discontinue medication immediately if any side effects noted. Recommended to have blood pressure re-evaluated in 4-6 weeks. Discussed risks of smoking and strongly urged patient to quit as soon as possible. Lidocare patches, OTC as directed. Follow up with primary physician for routine care, blood pressure evaluation, labwork, physical exam as scheduled and for any medical concerns. I have answered all the questions regarding patients current diagnosis, care and treatment plan to patients satisfaction during today's visit. Patient verbalize understanding of current diagnosis and treatment plan. Follow up with me as scheduled Notes from todays visit will be forwarded to consulting/requesting physician. JOHAN Mckoy, PA-C [facility] [address], [address] [place] [address] Referring Provider: ROSA CAIN [[id number]] Allergies As of Date: 12/02/2017 Noted Allergy Reaction AMOXICILLIN 05/16/2005 Comments: gi upset CODEINE 05/02/2015 8 - GI Upset GABAPENTIN 12/02/2017 7 - Swelling VICODIN (HYDROCODONE-ACETAMINO PHE*05/16/2005 Comments: gi upset Date Reviewed: 12/02/2017 Reviewed by: Idania River (Emily) Len - Fully Assessed Reason for Visit: cervical pain [Other] Primary Visit Diagnosis:Cervicalgia [M54.2] Other Visit Diagnoses:Abnormal reflex [R29.2] Spinal stenosis of cervical region [M48.02] Numbness and tingling of both upper extremities [R20.0, R20.2] Order(s):XR CERV GENERAL 2V AP/LAT [[id number]] Order #: [id number] FUTURE CONSULT TO PHYSICAL THERAPY [9032] Order #: [id number]: 1 meloxicam (MOBIC) 15 mg tabletTake 1 tablet by mouth once daily. WITH FOODDisp: 30 tabletRfl: 1 MRI CERVICAL SPINE WO IVCON [[id number]] Order #: [id number] FUTURE methylPREDNISolone (MEDROL, TONY,) 4 mg Dose-PackDo not use NSAIDS while on dose pack. Use as instructed on packageDisp: 1 PackageRfl: 0 Prescriptions as of 12/02/2017 Sig: MELOXICAM 15 MG TABLET Take 1 tablet by mouth once d* METHYLPREDNISOLONE 4 MG TABLE* Do not use NSAIDS while on do* OXYCODONE-ACETAMINOPHE N 5 MG-* Take 1 tablet by mouth every * Patient not taking: Reported on 12/02/2017 PRILOSEC ORAL Take by mouth. Problem List As Of Date 12/02/2017 Noted Resolved H/O total vaginal hysterectomy, dysplasia 1995 *INVALID FOR* History of right salpingo-oophorectomy 2000 [Z9*INVALID FOR* Closed nondisplaced transverse fracture of shaf*INVALID FOR* Prescriptions ordered this encounter Disp Refills Start End MELOXICAM 15 MG TABLET 30 t* 1 12/02/2017 Route: ORAL Sig: Take 1 tablet by mouth once daily. WITH FOOD METHYLPREDNISOLONE 4 MG TABLETS IN A* 1 Pa* 0 12/02/2017 Sig: Do not use NSAIDS while on dose pack. Use as instructed on package Medications Discontinued During This Encounter celecoxib (CELEBREX) 200 mg capsule 60 c* 2 03/24/2016 12/02/2017 Route: ORAL Sig: Take 1 capsule by mouth twice daily. Patient not taking: Reported on 12/02/2017 Disc: Reason for discontinue is not on file. Disposition: Return in about 4 weeks (around 12/30/2017). Follow-up and Disposition History Recorded Encounter Status:Closed by IDANIA AUGUSTE on 12/02/17 [facility] PROGRESSon 12-02-2017 Protein mass conc HNO ID: [id number] Author: Idania River (Emily) Len Service: (none) Author Type: Physician Consulting Marine Engineer Type: Progress Notes Filed: 12/02/2017 2:20 PM Note Text: [facility] Low Back Pain - Chronic (> 12 weeks) Initial Exam SUBJECTIVE HISTORY OF PRESENT ILLNESS: Alma Redd is a 42 year old female who presents with a chief complaint of low back pain and is seen in consultation requested by Dr. Cain for an opinion regarding low back pain. My final recommendations will be communicated back to the requesting physician by way of shared medical record or letter via US mail. Other Issues Addressed at the Visit Today: Neck pain Precipitating Event: None PAIN EVALUATION 12/02/2017 Pain Score: 6 Pain Location: Back-Lower Description: Aching Duration Units: Years Frequency: Continuous Intervention: Medication otc Pain Radiation: to the left foot/feet Aggravating Factors: Standing, Walking, Walking upstairs, Walking downstairs Alleviating Factors: Side-lying, Sitting, Standing Pain Ratio: Pain in the back is greater than in the leg Prior Therapy: Muscle relaxants- tramadol-does not want to take Litigation: No Workers' Compensation: No PED RED FLAGS YELLOW AND BLUE FLAGS No-Significant Injury to Spine No-Use of Steroids for Prolonged Duration No-Loss of Bowel/Bladder Control, Genital/Anal Numbness No-Recent Use of Intravenous (IV) Drugs No-Difficulty Keeping Balance when Walking YES-Progressive Weakness in Arms/Legs YES-History of Any Type of Cancer No-Unable to Find Position of Comfort YES-Pain at Night that Disturbs Sleep No-Recent Elevated Temp with Unknown Cause No-Diagnosed with Osteoporosis No-Unintentional Weight Loss or Gain No-Neg Attitude; Back Pain is Disabling YES-Avoiding Activity (for Fear of Pain) YES-Depression or Anxiety Disorders No-Social Problems No-Substance Use Disorder No-Job Dissatisfaction YES-Financial Disincentives *PED (Patient Entered Data) osteoporosis flag will display for females 55 years or older and males 75 years or older. 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 PAST MEDICAL HISTORY Diagnosis Date - Spinal stenosis lumbar history of cortisone injections PAST SURGICAL HISTORY Procedure Laterality Date - HYSTERECTOMY HX 1994 partial - PAST SURGICAL HISTORY OF 2000 removal of right ovary - PAST SURGICAL HISTORY OF 1994 lung biopsy x2 negative - PAST SURGICAL HISTORY OF laparoscopic removal of scar tissue from abdomen Social History Marital status: Single Spouse name: Years of education: Number of children: Social History Main Topics Smoking status: Current Every Day Smoker Packs/day: 1.00 Years: 15.00 Types: Cigarettes Comment: quit 2 weeks ago Alcohol use: Yes Comment: rare Drug use: No Sexual activity: Yes Partners with: Male control/protection: Surgical No family history on file. ALLERGIES Allergen Reactions - Amoxicillin gi upset - Codeine GI Upset - Vicodin [Hydrocodon* gi upset CURRENT MEDICATIONS: celecoxib (CELEBREX) 200 mg capsule Take 1 capsule by mouth twice daily. oxyCODONE-acetaminophe n (PERCOCET) 5-325 mg tablet Take 1 tablet by mouth every 8 hours as needed. OMEPRAZOLE (PRILOSEC ORAL) Take by mouth. REVIEW OF SYSTEMS: PAIN ASSESSMENT: See HPI. GENERAL: Denies fever, chills malaise and weight loss. HEENT: Eyes positive for blurred vision OBJECTIVE: PHYSICAL EXAM see encounter Imaging Ordered: For possible Cervical Radiculopathy due to arm pain unresponsive to medical management. SIGNATURE: Idania Auguste PA-C PATIENT NAME: Alma Redd DATE: December 02, 2017 TIME: 1:04 PM HPI explored in detail with patient and edited as ha. See notes for physical exam and treatment plan. CC - Here for worsening neck pain and limitation of motion after therapy sessions performing traction. Pt had xrays and injections done locally at [facility] near [place]. Pt given RX for Zanaflex, but it was not picked up yet, until her payday. Celebrex in the past, not effective. Neurontin trial, thrush reaction and discontinued. No gains with any conservative mgmt and has done recent therapy. Denies significant bowel/bladder dysfunction or imbalance. N/T intermittently, upper extremities which was the initial symptom that patient ended up in therapy for before her worsening symptoms following traction. PHYSICAL EXAM: GENERAL APPEARANCE - well nourished, well hydrated, no apparent distress SPEECH - No slurring noted. SKIN - No skin breakdown noted in posterior cervical spine region HEAD - Normal cephalic, Atraumatic EYES - Extra ocular movement intact, no conjunctivitis, no nystagmus. EARS - No drainage noted, pinna intact NOSE - No epistaxis noted THROAT - No thyromegaly, no gross lymphadenopathy VASCULAR - No significant cynosis noted in fingers ABDOMEN - no guarding noted NEURO - Alert and oriented, cooperative, answers questions appropriately GAIT - No significant antalgic gait noted. SENSORY EXAM - Grossly intact to superficial light touch to bilateral upper limbs. MOTOR STRENGTH - Good to Normal bilaterally in biceps, triceps, anterior and lateral deltoids, wrist flexors, wrist extensors, and hand intrinsics. MUSCLE STRETCH REFLEXES - symmetric bilaterally in biceps, brachioradialis. Triceps 3+ on left, hyperflexic RANGE OF MOTION - Significant loss of ROM in cervical flexion, extension, rotation to right and left. all limited to due pain today. SHOULDER ROM - within functional limit in flexion, extension, abduction, and adduction bilaterally. ELBOW ROM - within functional limits in flexion, extension bilaterally WRIST ROM - intact in flexion, extension bilaterally, pronation / supination intact bilaterally MUSCLE MASS - No gross muscle atrophy or asymmetry noted bilaterally in upper limbs, including in the hand intrinsics, thenar and hypothenar eminence. TENDERNESS - ++ Significant reproduction of pain with palpation of cervical paraspinous muscles bilaterally and trapezius bilaterally. LAURA SIGNS: 1) Tenderness: Appropriate 2) Simulation/Axial Loading/ROT: Appropriate 3) Distraction: Seated SLR: Appropriate 4) Regional Disturbances: Appropriate 5) Overreaction: Negative NEURO/PHYSICAL SIGNS: Negative Moon sign bilaterally Other findings: none Radiology: Reports and films reviewed with patient. cervical xrays, outside system 06/2017: Report to be scanned. (prior to PT/Traction - worsening) Impression: DDD C5-C6 with hypertrophic joint changes at level, mild bilateral nerural foraminal narrowing, same level. N acute fracture visualized. No soft tissue swelling noted. IMPRESSION: see diagnosis. Cervicalgia (primary encounter diagnosis) Abnormal reflex Spinal stenosis of cervical region Numbness and tingling of both upper extremities PLAN: Discussed evidence based options including use of medications, non-surgical and surgical options. Educated about likely pathology and reviewed anatomy and prognosis. At present, pt would like to continue with non surgical care. Cervical spine MRI: - R/o HNP vs stenosis vs occult pathology. Results will help us with possible planning for invasive options including fluoroscopic guided injections and surgical options. f/u with me for review of study and additional recommendations. abnormal reflex, limitation due to pain LROM, f/u after studies. PT - Core stabilization exercises, stretching/ flexibility and strengthening exercises, soft-tissue/ joint mobilization, modalities, body mechanics, posture, and home exercise program. hold. Mobic 15mg/qd # 30. Do not use any other NSAIDS or Kohler-2 inhibitors. Discontinue medication immediately if any side effects noted. Recommended to have blood pressure re-evaluated in 4-6 weeks. Discussed risks of smoking and strongly urged patient to quit as soon as possible. Lidocare patches, OTC as directed. Follow up with primary physician for routine care, blood pressure evaluation, labwork, physical exam as scheduled and for any medical concerns. I have answered all the questions regarding patients current diagnosis, care and treatment plan to patients satisfaction during today's visit. Patient verbalize understanding of current diagnosis and treatment plan. Follow up with me as scheduled Notes from todays visit will be forwarded to consulting/requesting physician. JOHAN Mckoy, PA-C [facility] [address], [address] [place] [address] [facility] XR OUTSIDE CD DICOM IMPORT - NBNRon 07-09-2017 XR OUTSIDE CD DICOM IMPORT -NBNR Images were obtained outside of [facility] [id number] [facility] Vital Signs Date Time Vital Sign Value Performing Clinician Shonda hatfield 04-14-2023 14:22-0500 Body height 163.83 cm PHYSICIAN NO [facility] 04-14-2023 14:22-0500 Body temperature 98 [degF] PHYSICIAN NO [facility] 04-14-2023 14:22-0500 Body weight 59.8 kg PHYSICIAN NO [facility] 04-14-2023 14:22-0500 Diastolic blood pressure 83 mm[Hg] PHYSICIAN NO [facility] 04-14-2023 14:22-0500 Heart rate 78 /min PHYSICIAN NO [facility] 04-14-2023 14:22-0500 Respiratory rate 18 /min PHYSICIAN NO [facility] 04-14-2023 14:22-0500 SaO2% (BldA) [Mass fraction] 98 % PHYSICIAN NO [facility] 04-14-2023 14:22-0500 Systolic blood pressure 129 mm[Hg] PHYSICIAN NO [facility] Encounters Encounter Date Encounter Type Care Provider Facility Start: 04-14-2023 End: 04-14-2023 Emergency department patient visit Hiral Lombardo Facility:[facility] Start: 04-14-2023 End: 04-14-2023 Emergency department patient visit PHYSICIAN NO [facility] Work Phone: Start: 06-21-2018 End: 06-23-2018 Patient encounter procedure MORAIMA COFFMAN [facility] Start: 06-02-2018 End: 06-03-2018 Patient encounter procedure IDANIA AUGUSTE (PA) [facility] Start: 02-24-2018 End: 02-24-2018 Patient encounter procedure JIM LINDA [facility] Start: 02-16-2018 End: 02-18-2018 Patient encounter procedure IDANIA KING) LEN [facility] Start: 01-05-2018 End: 01-06-2018 Patient encounter procedure IDANIA KING) LEN [facility] Start: 12-02-2017 End: 12-03-2017 Patient encounter procedure IDANIA KING) LEN [facility] Procedures Date Procedure Procedure Detail Performing Clinician Start: 04-14-2023 Plain X-ray of right hand PHYSICIAN NO FAMILY Plan of Treatment Date Care Activity Detail Author Patient Education Osteoarthritis (DC) [facility] Work Phone: Patient referral [facility] Work Phone: Payers Date Payer Category Payer Private Health Insurance [id number] 2023 Self-pay [id number] 2023 Unknown [id number] Medicaid Medicaid [id number] Unknown [place] [id number] Unknown [id number] Social History Date Type Detail Facility Start: 04-14-2023 Tobacco smoking stat RUSTIS Smoker (finding) [facility] Start: 1975 Sex Assigned At Female [facility] Evaluation note Note Date & Type Note Facility Evaluation note No assessment information availa [facility] Work Phone: Summary Purpose Family History No Family History Records FoundNo Family History Records Found Advance Directives No Advanced Directives Records Found Advance Directive Response Recorded Date/ Time Advance Directives No March 10:22am Chief Complaint and Reason for Visit Chief Complaint hand injury Additional Source Comments INFORMATION SOURCE (unrecogn ized section and content) DATE CREATED AUTHOR 06/26/2018 [facility] DATE CREATED AUTHOR AUTHOR'S ORGANIZ ATION 05/18/2023 [facility] Care Teams (unrecognized sec tion and content) Team Status: Active Member Role Status Dates PHYSICIAN NO FAMILY Primary Care Provider Active Team Status: Inactive Member Role Status Dates PHYSICIAN NO FAMILY Primary Care Provider Active Hiral Lombardo APRN Emergency Provider Active Goals (unrecognized section and content) Goals may be documented in a n alternate section FOR RECORDS PERTAINING TO PATIENTS WHO ARE OR HAVE BEEN ENROLLED IN A CHEMICAL DEPENDENCY/SUBSTANCEABUSE PROGRAM, SOME INFORMATION MAY BE OMITTED. This clinical summary was aggregated from multiple sources. Caution should be exercised in using it in the provision of clinical care. This summary normalizes information from multiple sources, and as a consequence, information in this document may materially change the coding, format and clinical context of patient data. In addition, data may be omitted in some cases. CLINICAL DECISIONS SHOULD BE BASED ON THE PRIMARY CLINICAL RECORDS. [facility] [employer] [facility]. provides no warranty or guarantee of the accuracy or completeness of information in this document.
--- NOTE | 2024-01-17 17:36 | XR_ITS ---
The [address] [address] Patient Name: ALMA WALTON MRN: [id number] date: 1975 Sex: F Assigned Patient Location: ER Current Patient Location: ER Accession/Order Number: [id number] Exam Date: 01/17/2024 17:42 Report Date: 01/17/2024 18:14 At the request of: JAMEEL VILLEDA Procedure: XR shoulder LT min 2V EXAM: XR shoulder LT min 2V HISTORY: Atraumatic pain, rotator cuff?? COMPARISON: None. TECHNIQUE: 3 views of the left shoulder. FINDINGS: Bones: No acute fracture or aggressive appearing bony lesion. No calcific tendinitis. Joints: Normal alignment. No effusion. No significant degenerative findings. Soft tissues: Unremarkable. XR/XR shoulder LT min 2V IMPRESSION: No acute process. If there is any concern for ligamentous injury, shoulder MRI or ultrasound is recommended. Electronically authenticated by: ARIANNE ARNOLD Date: 01/17/2024 18:14
--- NOTE | 2024-01-17 17:36 | ED_ITS ---
HPI - Extremity Problem General Chief complaint: Extremity Problem, Nontraumatic Stated complaint: Upper Injury Time Seen by Provider: 01/17/24 17:24 Source: patient Mode of arrival: walk-in History of Present Illness HPI Narrative: 48-year-old female presents for left shoulder pain. She has had it for months and there is no associated trauma. She woke up with the pain 1 day. She has not had medical attention to it. No weakness or numbness in her arm. She had a left humerus fracture years ago but did not require surgery. She is right- handed. Related Data Previous Rx's ?Medication ?Instructions ?Recorded etodolac 400 mg tablet 400 mg PO Q8H PRN pain #20 tabs 01/17/24 Allergies Allergy/AdvReac Type Severity Reaction Status Date / Time gabapentin AdvReac Intermediate altered Verified 08/31/23 20:32 mental status amoxicillin AdvReac Mild Vomiting Verified 08/31/23 20:32 codeine AdvReac Mild Vomiting Verified 08/31/23 20:32 Review of Systems ROS Narrative A ten point review of systems is negative except as noted above. PFSH PFSH Social History Little interest or pleasure in doing things: not at all Feeling down, depressed, or hopeless: not at all Exam Narrative Exam Narrative: Nurses note and vital signs reviewed and patient is not hypoxic. General: The patient appears in no apparent distress. Skin: Warm, dry, no pallor noted. There is no rash noted. Head: Normocephalic, atraumatic Eye: Normal conjunctiva, no drainage Ears, Nose, Mouth, and Throat: oral mucosa is moist. Nares patent. Cardiovascular: Regular Rate and Rhythm Respiratory: Patient is in no distress, no accessory muscle use, lungs are clear to auscultation, no wheezing, rales or rhonchi Back: non-tender GI: Soft and nontender Musculoskeletal: She is reluctant to lift her left arm. There is no bruising or deformity or rash in the shoulder. Radial pulse 2+. Fingers have full range of motion Neurological: A&O, normal speech Psychiatric: Cooperative Constitutional Vital Signs, click to edit/add: Last Vital Signs Temp 98 F 01/17/24 17:25 Pulse 94 H 01/17/24 17:25 Resp 18 01/17/24 17:25 BP 115/84 01/17/24 17:25 Pulse Ox 96 01/17/24 17:25 O2 Del Method Room Air 01/17/24 17:25 Course Vital Signs Vital signs: Vital Signs Temperature 98 F 01/17/24 17:25 Pulse Rate 94 H 01/17/24 17:25 Respiratory Rate 18 01/17/24 17:25 Blood Pressure 115/84 01/17/24 17:25 Pulse Oximetry 96 01/17/24 17:25 Oxygen Delivery Method Room Air 01/17/24 17:25 Temperature 98 F 01/17/24 17:25 Pulse Rate 94 H 01/17/24 17:25 Respiratory Rate 18 01/17/24 17:25 Blood Pressure 115/84 01/17/24 17:25 Pulse Oximetry 96 01/17/24 17:25 Oxygen Delivery Method Room Air 01/17/24 17:25 MDM - Extremity (Nontraumatic) MDM Narrative Medical decision making narrative: X-ray per radiologist shows no acute findings. I suspect she may have a rotator cuff injury and we have made an appointment for her to see Dr. Thurston on January 24 at 11:30 AM. Treatment diagnosis and follow-up were discussed with the patient. Differential Diagnosis Differential diagnosis: Likely other (Rotator cuff injury, fracture, arthritis, calcific tendinitis) Imaging Data Shoulder x-ray: Radiologist's impression: ITS Impressions Shoulder X-Ray 01/17/24 17:36 IMPRESSION: No acute process. If there is any concern for ligamentous injury, shoulder MRI or ultrasound is recommended. Electronically authenticated by: ARIANNE ARNOLD Date: 01/17/2024 18:14 Discharge Plan Discharge Chief Complaint: Extremity Problem, Nontraumatic Clinical Impression: Left shoulder pain Patient Disposition: Home, Self-Care Time of Disposition Decision: 18:25 Condition: Good Mode of Transportation: Private Vehicle Prescriptions / Home Meds: New etodolac 400 mg tablet 400 mg PO Q8H PRN (Reason: pain) Qty: 20 0RF Print Language: Icelandic Instructions: Shoulder Pain (ED) Referrals: Physician,Non-Staff, [Primary Care Provider] - 1 week Giorgio Thurston MD [Physician] - 01/25/24 11:30 am
== END 2024-01-17 18:34 | disposition home or self-care (01) ==
PROVIDERS: Emergency Provider Emergency Medicine; Family Provider Internal Medicine
DX: M25.512 Pain in left shoulder (principal)
CPT/HCPCS: 73030; 99283

== ENCOUNTER 2024-01-25 12:15 | Emergency (ER) | payer OTHER, SELFPAY ==
[2024-01-25 12:19] VITALS: BP 126/85; PULSE 100; TEMP 36.8; O2SAT 99; BMI 27.5
--- OUTSIDE RECORDS SUMMARY | 2024-01-25 12:31 | XMS_ITS | CCD ---
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 BCDIF, WSR, CRP, RF, URIC, ANAIFR ####[address], [place] [phone] Platelet mean volume Entitic volume (Bld) 11.6 fL Normal 9.0-12.7 [facility] Comment on above: Performed By: #### C BCDIF, WSR, CRP, RF, URIC, ANAIFR ####[address] [phone] Platelets #/vol (Bld) 293 10*3/uL Normal 150-400 [facility] Comment on above: Performed By: #### C BCDIF, WSR, CRP, RF, URIC, ANAIFR ####[address] [phone] RBC #/vol (Bld) 5.02 10*6/uL Normal 3.90-5.20 [facility] Comment on above: Performed By: #### C BCDIF, WSR, CRP, RF, URIC, ANAIFR ####[address] [place], [place] [phone] WBC #/vol (Bld) 11.51 10*3/uL High 3.70-11.00 [facility] Comment on above: Performed By: #### C BCDIF, WSR, CRP, RF, URIC, ANAIFR ####[address], [place] [phone] CNOVon 02-24-2018 CNOV Office Visit (ORTHAL ) ALMA REDD ([id number]) 1975 F Date Time Provider Department 02/24/18 [...] positive cross-chest, negative Speed's, negative Yergason's, negative Proctor's test NEUROLOGICAL EXAM: Sensory: sensation symmetric AND intact to light touch AND pinprick bilateral C4-T1 distributions Motor: 5/5 bilateral biceps, triceps, esol teacher, finger abduction, WE, WF, AND EPL VASCULAR EXAM: radial AND brachial pulses 2+, good skin color with brisk capillary refill LYMPH NODES: no supraclavicular or epitrochlear adenopathy palpable Review of Additional Data/Studies: IMPRESSION: NORMAL RADIOGRAPH OF THE RIGHT SHOULDER Hand Sewer Shoes: PSCB ? Transcribe Date/Time: Jan 05 2018 [...] [M25.511] Order(s):CBC + DIFF [SQCBCDIF] Order #: [id number] FUTURE C-REACTIVE PROTEIN (CRP) [SQCRP] Order #: [id number] FUTURE BARBARA BY IFA WITH REFLEX [SQANAIFR] Order #: [id number] FUTURE URIC ACID BLOOD [SQURIC] Order #: [id number] FUTURE SED RATE WESTERGREN [SQWSR] Order #: [id number] FUTURE RHEUMATOID FACTOR BL [SQRF] Order #: [id number] FUTURE MRI SHOULDER WO IVCON RT [[id number]] Order #: [id number] FUTURE Prescriptions as of 02/24/2018 Sig: METHOCARBAMOL [...] Status:Closed by JIM LINDA PA-C on 02/24/[address] [facility] PROGRESSon 02-24-2018 Protein mass conc HNO ID: [id number] Author: Jim Linda Service: (none) Author Type: Physician Life Skills Teacher Type: Progress Notes Filed: 02/24/2018 2:14 PM [...] positive cross-chest, negative Speed's, negative Yergason's, negative Proctor's test NEUROLOGICAL EXAM: Sensory: sensation symmetric AND intact to light touch AND pinprick bilateral C4-T1 distributions Motor: 5/5 bilateral biceps, triceps, esol teacher, finger abduction, WE, WF, AND EPL VASCULAR EXAM: radial AND brachial pulses 2+, good skin color with brisk capillary refill LYMPH NODES: no supraclavicular or epitrochlear adenopathy palpable Review of Additional Data/Studies: IMPRESSION: NORMAL RADIOGRAPH OF THE RIGHT SHOULDER Hand Sewer Shoes: ROB ? Transcribe Date/Time: Jan 05 2018 [...] been identified and corrected by editing. Normal [facility] Rheumatoid Factoron 02-25-20 18 Rheumatoid Factor <10 Normal <16 [facility] Comment on above: Performed By: #### C BCDIF, WSR, CRP, RF, URIC, ANAIFR ####[facility] [address] [place], [place] [phone] Sed Rate Westergrenon 2017 Sed Rate Westergren 5 mm/hr Normal 0-20 [facility] Comment on above: Performed By: #### C BCDIF, WSR, CRP, RF, URIC, ANAIFR ####[facility] [place], [place] [phone] Uric Acidon 02-24-2018 Urate mass conc 4.6 mg/dL Normal 2.5-6.6 [facility] Comment on above: Performed By: #### C BCDIF, WSR, CRP, RF, URIC, ANAIFR ####[facility] [address] [place], [place] [phone] CNOVon 02-16-2018 CNOV Office Visit (SPMECO ) ALMA REDD ([id number]) 1975 F Date Time Provider Department 02/16/18 [...] to patients satisfaction during today's visit. JOHAN Alvarze, PA-C Referring Provider: IDANIA AUGUSTE (EMILY) [[id number]] Allergies As of Date: 02/16/2018 Noted Allergy [...] R20.2] Myalgia [M79.10] Order(s):CONSULT TO SPINE SURGERY [[id number]] Order #: [id number]: 1 Prescriptions as of 02/16/2018 Sig: MELOXICAM [...] PM Not taking >> Hiral Evans LPN, TRANSPORTATION REFRIGERATION TECHNICIAN 02/16/2018 4:01 PM >> HIRAL EVANS Feb 16, 2018 4:01 PM Taking >> Hiral Evans LPN, TRANSPORTATION REFRIGERATION TECHNICIAN 02/16/2018 4:07 PM >> HIRAL EVANS Feb 16, 2018 4:07 PM Pt takes 2 tabs TID MELOXICAM 15 MG TABLET >> Hiral Evans FABIANA, TRANSPORTATION REFRIGERATION TECHNICIAN 02/16/2018 4:01 PM >> HIRAL EVANS Feb [...] Encounter Status:Closed by IDANIA AUGUSTE on 02/17/[address] [facility] PROGRESSon 02-16-2018 Protein mass conc HNO ID: [id number] Author: Idania River (Emily) Len Service: (none) Author Type: Physician Life Skills Teacher Type: Progress Notes Filed: 02/17/2018 4:10 PM [...] during today's visit. JOHAN Alvarez, MANASA Normal [facility] CNOVon 01-05-2018 CNOV Office Visit (SPMECO ) ISABELLEALMA WADDELL ([id number]) 1975 F Date Time Provider Department 01/05/18 [...] continue with non surgical care. Shoulder Injection: [facility] approved time out was performed identifying [...] Alvarez, PAGustavoC Referring Provider: IDANIA AUGUSTE (EMILY) [[id number]] Allergies As of Date: 01/05/2018 Noted Allergy [...] GENERAL 3V OR MORE AP/TRUE AP/OTHER RT [[id number]] Order #: [id number] FUTURE CONSULT TO PHYSICAL THERAPY [9081] Order #: [id number]: 1 meloxicam (MOBIC) 15 mg tabletTake 1 [...] injection (XYLOCAINE)Disp: Rfl: CONSULT TO RHEUM/IMMUN DISEASE [7507] Order #: [id number]: 1 CONSULT TO ORTHOPAEDICS [9030] Order #: [id number]: 1 Prescriptions as of 01/05/2018 Sig: MELOXICAM [...] Status:Closed by IDANIA AUGUSTE on 01/05/18 Normal [facility] PROGRESSon 01-05-2018 Protein mass conc HNO ID: [id number] Author: Mona Webster (Tech) Service: (none) Author Type: Credit Controller Type: Progress Notes Filed: 01/05/2018 9:58 AM [...] DATA: Not applicable SIGNED BY: Mona Webster, FURNITURE REFINISHER January 05, 2018 9:58 AM Normal [facility] Protein mass conc HNO ID: [id number] Author: Idania Auguste (Pa) Service: (none) Author Type: Physician Life Skills Teacher Type: Progress Notes Filed: 01/05/2018 9:48 AM [...] continue with non surgical care. Shoulder Injection: [facility] approved time out was performed identifying [...] during today's visit. JOHAN Alvarez, PA-C Normal [facility] XR SHLDR >/=3V AP/JESSY AP/OTH R RTon [...] IMPRESSION: NORMAL RADIOGRAPH OF THE RIGHT SHOULDER Hand Sewer Shoes: ROB Transcribe Date/Time: Jan 05 2018 10:04A Dictated by : JESSEE LESLIE DO This examination was interpreted and the report reviewed and electronically signed by: HERI MAURRE MD on Jan 05 2018 5:48PM EST [id number] Normal [facility] MR OUTSIDE CD DICOM IMPORT - NBNRon 12-29-2017 MR OUTSIDE CD DICOM IMPORT -NBNR Images were obtained outside of [facility] [id number] Normal [facility] CNOVon 12-02-2017 CNOV Office Visit (SPMECO ) ISABELLEALMA Henry ([id number]) 1975 F Date Time Provider Department 12/02/17 [...] xrays and injections done locally at [facility] near [place]. Pt given RX for Zanaflex, but it [...] forwarded to consulting/requesting physician. JOHAN Mckoy, PA-C [facility] Multi Specialty/Spine Medicine [address], [address] [place] [address] Referring Provider: ROSA CAIN [[id number]] Allergies As of Date: 12/02/2017 Noted Allergy [...] [R20.0, R20.2] Order(s):XR CERV GENERAL 2V AP/LAT [[id number]] Order #: [id number] FUTURE CONSULT TO PHYSICAL THERAPY [9032] Order #: [id number]: 1 meloxicam (MOBIC) 15 mg tabletTake 1 tablet by mouth once daily. WITH FOODDisp: 30 tabletRfl: 1 MRI CERVICAL SPINE WO IVCON [[id number]] Order #: [id number] FUTURE methylPREDNISolone (MEDROL, TONY,) 4 mg Dose-PackDo [...] Status:Closed by IDANIA AUGUSTE on 12/02/17 Normal [facility] PROGRESSon 12-02-2017 Protein mass conc HNO ID: [id number] Author: Idania River (Emily) Len Service: (none) Author Type: Physician Life Skills Teacher Type: Progress Notes Filed: 12/02/2017 2:20 PM [...] xrays and injections done locally at [facility] near [place]. Pt given RX for Zanaflex, but it [...] forwarded to consulting/requesting physician. JOHAN Mckoy, PA-C [facility] Multi Specialty/Spine Medicine [address], [address] [place] [address] Normal [facility] XR OUTSIDE CD DICOM IMPORT - NBNRon 07-09-2017 XR OUTSIDE CD DICOM IMPORT -NBNR Images were obtained outside of [facility] [id number] Normal [facility] Vital Signs Date Time Vital Sign Value Performing Clinician Shonda hatfield 04-14-2023 14:22-0500 Body height 163.83 cm PHYSICIAN NO [facility] 04-14-2023 14:22-0500 Body temperature 98 [degF] PHYSICIAN NO [facility] 04-14-2023 14:22-0500 Body weight 59.8 kg PHYSICIAN NO [facility] 04-14-2023 14:22-0500 Diastolic blood pressure 83 mm[Hg] PHYSICIAN NO [facility] 04-14-2023 14:22-0500 Heart rate 78 /min PHYSICIAN NO [facility] 04-14-2023 14:22-0500 Respiratory rate 18 /min PHYSICIAN NO [facility] 04-14-2023 14:22-0500 SaO2% (BldA) [Mass fraction] 98 % PHYSICIAN NO [facility] 04-14-2023 14:22-0500 Systolic blood pressure 129 mm[Hg] PHYSICIAN NO [facility] Encounters Encounter Date Encounter Type Care Provider Facility Start: 04-14-2023 End: 04-14-2023 Emergency department patient visit Hiral Lombardo Facility:[facility] Start: 04-14-2023 End: 04-14-2023 Emergency department patient visit PHYSICIAN NO [facility] Work Phone: Start: 06-21-2018 End: 06-23-2018 Patient encounter procedure MORAIMA COFFMAN [facility] Start: 06-02-2018 End: 06-03-2018 Patient encounter procedure IDANIA AUGUSTE (PA) [facility] Start: 02-24-2018 End: 02-24-2018 Patient encounter procedure JIM LINDA [facility] Start: 02-16-2018 End: 02-18-2018 Patient encounter procedure IDANIA KING) LEN [facility] Start: 01-05-2018 End: 01-06-2018 Patient encounter procedure IDANIA KING) LEN [facility] Start: 12-02-2017 End: 12-03-2017 Patient encounter procedure IDANIA KING) LEN [facility] Procedures Date Procedure Procedure Detail Performing Clinician Start: 04-14-2023 Plain X-ray of right hand PHYSICIAN NO FAMILY Plan of Treatment Date Care Activity Detail Author Patient Education Osteoarthritis (DC) [facility] Work Phone: Patient referral [facility] Work Phone: Payers Date Payer Category Payer Private Health Insurance [id number] 2023 Self-pay [id number] 2023 Unknown [id number] Medicaid Medicaid [id number] Unknown [place] BC/BS [id number] Unknown [id number] Social History Date Type Detail Facility Start: [facility]14[facility]23 [facility] Start: 1975 Sex Assigned At Female F [facility] Evaluation note Note Date & Type Note Facility Evaluation note No assessment information availa [facility] Work Phone: Summary Purpose Family History No Family History Records FoundNo Family History Records Found Advance Directives No Advanced Directives Records Found Advance Directive Response Recorded Date/ Time Advance Directives No March 10:22am Chief Complaint and Reason for Visit Chief Complaint hand injury Additional Source Comments INFORMATION SOURCE (unrecogn ized section and content) DATE CREATED AUTHOR 06/26/2018 [facility] DATE CREATED AUTHOR AUTHOR'S ORGANIZ ATION 05/18/2023 [facility] Care Teams (unrecognized sec tion and content) [...] BE BASED ON THE PRIMARY CLINICAL RECORDS. [facility] [email or web address] [facility]. provides no warranty or guarantee of the accuracy or completeness of information in this document.
--- NOTE | 2024-01-25 12:32 | ED_ITS ---
HPI - Extremity Problem General Chief complaint: Extremity Problem, Nontraumatic Stated complaint: UPPER LEFT EXTREMITY PAIN Time Seen by Provider: 01/25/24 12:21 Source: patient Mode of arrival: walk-in Limitations: no limitations History of Present Illness HPI Narrative: 48-year-old female presents for left shoulder pain. This is an ongoing issue for her and she was seen here about 8 days ago. At that time she had x-rays and was referred to orthopedics. Today's orthopedics appointment was canceled and rescheduled for a week from today and she came here for pain medicine. No new injury. It hurts more when she moves it. No specific injury. Related Data Previous Rx's ?Medication ?Instructions ?Recorded etodolac 400 mg tablet 400 mg PO Q8H PRN pain #20 tabs 01/17/24 tramadol 50 mg tablet 50 mg PO Q8H PRN pain 5 days #20 01/25/24 tabs Allergies Allergy/AdvReac Type Severity Reaction Status Date / Time gabapentin AdvReac Intermediate altered Verified 01/25/24 12:19 mental status amoxicillin AdvReac Mild Vomiting Verified 01/25/24 12:19 codeine AdvReac Mild Vomiting Verified 01/25/24 12:19 Review of Systems ROS Narrative A ten point review of systems is negative except as noted above. PFSH PFSH Social History Little interest or pleasure in doing things: not at all Feeling down, depressed, or hopeless: not at all Exam Narrative Exam Narrative: Nurses note and vital signs reviewed and patient is not hypoxic. General: The patient appears uncomfortable. Skin: Warm, dry, no pallor noted. There is no rash noted. Head: Normocephalic, atraumatic Eye: Normal conjunctiva, no drainage Ears, Nose, Mouth, and Throat: oral mucosa is moist. Nares patent. Cardiovascular: Regular Rate and Rhythm Respiratory: Patient is in no distress, no accessory muscle use, lungs are clear to auscultation, no wheezing, rales or rhonchi Back: non-tender GI: Normal bowel sounds, no tenderness to palpation, no masses appreciated. No rebound, guarding, or rigidity noted. Musculoskeletal: The left shoulder is examined. There is no deformity. She has difficulty with arm abduction. Neurological: A&O x4, normal speech Psychiatric: Cooperative Constitutional Vital Signs, click to edit/add: Last Vital Signs Temp 98.2 F 01/25/24 12:19 Pulse 100 H 01/25/24 12:19 Resp 20 01/25/24 12:19 BP 126/85 01/25/24 12:19 Pulse Ox 99 01/25/24 12:19 O2 Del Method Room Air 01/25/24 12:19 Course Vital Signs Vital signs: Vital Signs Temperature 98.2 F 01/25/24 12:19 Pulse Rate 100 H 01/25/24 12:19 Respiratory Rate 20 01/25/24 12:19 Blood Pressure 126/85 01/25/24 12:19 Pulse Oximetry 99 01/25/24 12:19 Oxygen Delivery Method Room Air 01/25/24 12:19 Temperature 98.2 F 01/25/24 12:19 Pulse Rate 100 H 01/25/24 12:19 Respiratory Rate 20 01/25/24 12:19 Blood Pressure 126/85 01/25/24 12:19 Pulse Oximetry 99 01/25/24 12:19 Oxygen Delivery Method Room Air 01/25/24 12:19 MDM - Extremity (Nontraumatic) MDM Narrative Medical decision making narrative: X-rays have already been performed and she has a follow-up orthopedic appointment. She was given IM Toradol here and prescribed Ultram. I am still concerned about the possibility of rotator cuff injury. Differential Diagnosis Differential diagnosis: Likely other (Rotator cuff injury, arthritis, calcific tendinitis) Discharge Plan Discharge Chief Complaint: Extremity Problem, Nontraumatic Clinical Impression: Left shoulder pain Patient Disposition: Home, Self-Care Time of Disposition Decision: 12:27 Condition: Good Mode of Transportation: Private Vehicle Prescriptions / Home Meds: New tramadol 50 mg tablet 50 mg PO Q8H PRN (Reason: pain) 5 Days Qty: 20 0RF No Action etodolac 400 mg tablet 400 mg PO Q8H PRN (Reason: pain) Qty: 20 0RF Print Language: Pakistani Instructions: Shoulder Pain (ED) Additional Instructions: See Dr. Thurston at your new appointment. Referrals: Physician,Non-Staff, MD [Primary Care Provider] - 1 week
[2024-01-25] MEDS: KETOROLAC TROMETHAMINE 60 MG/2 ML VIAL IM (12:39)
== END 2024-01-25 12:44 | disposition home or self-care (01) ==
PROVIDERS: Emergency Provider Emergency Medicine; Family Provider Internal Medicine
DX: M25.512 Pain in left shoulder (principal)
CPT/HCPCS: 96372; 99284; J1885